=== PATIENT | female | born 1935 | race Caucasian/White ===

== ENCOUNTER → 2018-01-26 13:01 | Outpatient (CLI) | payer MEDICARE, SELFPAY ==
[2018-01-26] MEDS: ABATACEPT IV (13:35)
[2018-01-26] MEDS: SODIUM CHLORIDE 0.9% IV (13:35)
== END ==
PROVIDERS: Family Provider Internal Medicine; PCP Internal Medicine; Visit Provider Internal Medicine
DX: M06.9 Rheumatoid arthritis, unspecified (principal)
CPT/HCPCS: 96365; J0129

== ENCOUNTER → 2018-02-24 12:47 | Oncology outpatient (ONC) | payer MEDICARE, SELFPAY ==
[2018-02-24 13:34] VITALS: BP 125/63; PULSE 62; RESP 18; TEMP 36.7; O2SAT 97
[2018-02-24] MEDS: SODIUM CHLORIDE 0.9% IV (13:49)
[2018-02-24] MEDS: ABATACEPT IV (13:49)
--- NOTE | 2018-02-24 14:41 | PC.NURSE ---
Pt received Orencia in clinic today. Tolerated well, no s/s of distress noted. Denies chest pain and SOb. Denies N/v. Denies numbness and tingling to extremities x4. Reports good appetite. Supportive at chair side.
== END ==
LOC: ONC 12:50
PROVIDERS: Family Provider Internal Medicine; PCP Internal Medicine; Visit Provider Internal Medicine
DX: M06.9 Rheumatoid arthritis, unspecified (principal)
CPT/HCPCS: 96365; 96413; J0129

== ENCOUNTER → 2018-11-17 14:51 | Outpatient (CLI) | payer MEDICARE, SELFPAY ==
--- NOTE | 2018-11-17 | DI.ECHO.S_ITS ---
[facility]---------+ [facility] +---------+ : : [address] : [place] [address] : : : : [id number] : : : : Phone: [phone] : [phone]+ Echocardiogram Report + + :Name: ANUP PANG Study Date: 11/17/2018 Height: 63 in : :[facility] Weight: 162 lb : : Gender: Female BSA: 1.8 m2 : :: 1935 Age: 82 yrs BP: 150/70 mmHg: :Reason For Study: Aortic valve stenosis : : Performed By: Ivette Hernandez : :Referring: SHELLEY MCCLAIN : + + Interpretation Summary Normal sinus rhythm. Wide QRS complexes. Normal LV size and wall thickness; normal wall motion and LV systolic function. EF is 60-65%. Stage II diastolic dysfunction. Severe LA enlargement; normal chamber sizes otherwise. Aortic valve is a trileaflet structure with heavily thickened and calcified leaflets; there is moderate aortic stenosis based on peak velocity (3.7 m/sec) and mean gradient (28 mm Hg). There is moderate associated AI. Otherwise no significant valvular abnormalities. Compared to prior study 09/09/2017 peak velocity across the aortic valve progressed from 3.3 m/sec to 3.7 m/sec, corresponding to worsening aortic stenosis. Procedure: A two-dimensional transthoracic echocardiogram with color flow and Doppler was performed. The study quality was technically adequate. Comparison is made with the echocardiogram of 09-09-17. The heart rate ranged between 66-75 bpm during the study. Left Ventricle: The left ventricle is normal in size. Left ventricular wall thickness is at the upper limits of normal. The ejection fraction is estimated to be 60-65%. Right Ventricle: The right ventricle grossly appears normal in size with probable normal systolic function. Atria: The left atrium is severely dilated. Right atrial size is normal. The interatrial septum is intact with no evidence for an atrial septal defect. Mitral Valve: The mitral valve leaflets appear borderline thickened, but open well. There is mild mitral regurgitation. Aortic Valve: The calculated aortic valve area is 0.9 cm2. The aortic valve area is 1.1 centimeters squared by planimetry. The peak aortic velocity is 3.7 m/sec. The peak aortic velocity on the previous exam was 3.3 m/sec. The aortic valve mean gradient is 28 mmHg. Severity ratio is 0.26. There is moderate aortic regurgitation. Tricuspid Valve: The tricuspid valve leaflets are thin and pliable. There is trace tricuspid regurgitation. The right ventricular systolic pressure is estimated to be at least 35 mmHg based on an estimated right atrial pressure of 3 mm Hg. Pulmonic Valve: The pulmonic valve is not well visualized. Great Vessels: The aortic root is normal size. The IVC is of normal diameter and collapses greater than 50% with a sniff. This suggests a low right atrial pressure of 3 mm Hg. Pericardium/ Pleura There is no pericardial effusion. There is no pleural effusion. MMode/2D Measurements & Calculations LVIDd: 4.4 cm LVOT diam: 2.1 cm LVIDs: 3.0 cm Ao root diam: 3.3 cm FS: 32.8 % asc Aorta Diam: 3.4 cm EPSS: 0.40 cm Ao Arch Diam (Prox Trans): 2.9 cm IVSd: 1.0 cm LVPWd: 1.1 cm LV salinas. diameter/BSA (cm/m^2): 2.5 LV sys. diameter/BSA (cm/m^2): 1.7 LA dimension: 3.6 cm RA long axis: 4.9 cm LA A2 area: 26.3 cm2 RA area: 18.4 cm2 LA A4 area: 20.5 cm2 RA vol: 58.7 ml LA length (vol): 4.8 cm RA : 33.2 ml/m2 LA vol: 95.9 ml IVC diam: 1.6 cm LA vol index: 54.2 ml/m2 RVDd major: 5.3 cm RVD1 (basal): 3.8 cm RVD2 (mid): 3.0 cm EN (plan): 1.1 cm2 Doppler Measurements & Calculations Ao V2 max: 372.6 cm/sec LVOT Max Cecil: 98.8 cm/sec Ao V2 mean: 246.4 cm/sec LV V1 max P.9 mmHg Ao max P.5 mmHg LV V1 VTI: 23.3 cm Ao mean P.3 mmHg EN(I,D): 0.87 cm2 Ao V2 VTI: 88.8 cm EN(V,D): 0.88 cm2 sev ratio: 0.26 EN indexed to BSA (cm^2/m^2): 0.49 AI P1/2t: 299.0 msec AI dec slope: 444.7 cm/sec2 MV E max cecil: 87.3 cm/sec TR max cecil: 281.1 cm/sec MV A max cecil: 109.3 cm/sec TR max P.6 mmHg MV E/A: 0.80 PA V2 max: 75.0 cm/sec Med Peak E' Cecil: 6.2 cm/sec PA V2 mean: 50.9 cm/sec E/E' med: 14.1 PA mean P.2 mmHg Lat Peak E' Cecil: 4.4 cm/sec PA Accel Time: 0.17 sec E/E' lat: 19.8 E/e' average: 16.9 MV dec time: 0.21 sec MV P1/2t: 64.2 msec MV P1/2t max cecil: 86.8 cm/sec SV(LVOT): 77.3 ml MVA(P1/2t): 3.4 cm2 Electronically signed by: Yolanda Frye M.D. on Reading Physician:11/18/2018 07:17 AM
== END ==
PROVIDERS: PCP Internal Medicine; Visit Provider Internal Medicine
DX: I08.0 Rheumatic disorders of both mitral and aortic valves (principal)
CPT/HCPCS: 93306

== ENCOUNTER → 2020-01-22 09:08 | Outpatient (CLI) | payer MEDICARE, SELFPAY ==
--- NOTE | 2020-01-22 | DI.ECHO.S_ITS ---
[facility] +---------+ [facility] +---------+ : : [address] : [place] [address] : : : : [id number] : : : : Phone: [phone] : : [phone]+ Echocardiogram Report + + :Name: ANUP PANG Study Date: 01/22/2020 Height: 63 in : :[facility] Weight: 165 lb : : Gender: Female BSA: 1.8 m2 : :: 1935 Age: 84 yrs BP: 155/78 mmHg: :Reason For Study: AORTIC STENOSIS : :Ordering Physician: Rogelio Levy Performed By: Mary Kay Barclay : :Referring: ROGELIO LEVY : + + Interpretation Summary 1) Normal left ventricular size, wall motion, and systolic function (EF 60- 65%). 2) Normal right ventricular size and function 3) There is moderate to severe aortic stenosis (valve area 0.9cm2, mean gradient 36.6mmHg, severity ratio 0.33). 4) There is moderate aortic regurgitation. 5) Compared to the Echo done 11/17/2018, aortic stenosis has progressed from moderate to moderate-severe on this study. Procedure: A two-dimensional transthoracic echocardiogram with color flow and Doppler was performed. The study quality was technically adequate. Comparison is made with the echocardiogram of 11/17/2018. The patient was in normal sinus rhythm during the exam. Left Ventricle: The left ventricle is normal in size. Left ventricular wall thickness is at the upper limits of normal. The ejection fraction is estimated to be 60-65%. Left ventricular systolic function is normal. Left ventricular wall motion is normal. Right Ventricle: The right ventricle is normal in size and function. Atria: The left atrium is mildly dilated. Right atrial size is normal. There is no Doppler evidence for an interatrial shunt. Mitral Valve: There is mild to moderate mitral annular calcification. The mitral valve leaflets appear mildly thickened, but open well. There is mild mitral regurgitation. Aortic Valve: The aortic valve is moderately calcified. The aortic valve is trileaflet. There is moderate to severe aortic stenosis. There is moderate aortic regurgitation. Tricuspid Valve: The tricuspid valve is normal in structure and function. There is mild tricuspid regurgitation. The right ventricular systolic pressure is estimated to be at least 22 mmHg based on an estimated right atrial pressure of 3 mm Hg. Pulmonic Valve: The pulmonic valve is not well seen, but is grossly normal. There is no pulmonic valvular regurgitation. Great Vessels: The aortic root is normal size. The ascending aorta is at the upper limits of normal in size. The IVC is of normal diameter and collapses greater than 50% with a sniff. This suggests a low right atrial pressure of 3 mm Hg. Pericardium/ Pleura There is no pericardial effusion. There is no pleural effusion. MMode/2D Measurements & Calculations LVIDd: 4.8 cm LVOT diam: 2.0 cm LVIDs: 3.3 cm Ao root diam: 3.1 cm FS: 30.3 % asc Aorta Diam: 3.3 cm EPSS: 0.42 cm Ao Arch Diam (Prox Trans): 2.8 cm IVSd: 0.87 cm LVPWd: 1.1 cm LV sal[place]. diameter/BSA (cm/m^2): 2.7 LV sys. diameter/BSA (cm/m^2): 1.9 LA A2 area: 22.0 cm2 RA long axis: 4.9 cm LA A4 area: 18.1 cm2 RA area: 16.6 cm2 LA length (vol): 5.4 cm RA vol: 48.1 ml LA vol: 62.7 ml RA : 27.0 ml/m2 LA vol index: 35.2 ml/m2 IVC diam: 1.7 cm RVD1 (basal): 3.7 cm TAPSE: 2.0 cm Doppler Measurements & Calculations Ao V2 max: 410.2 cm/sec LVOT Max Cecil: 123.3 cm/sec Ao V2 mean: 288.6 cm/sec LV V1 max P.1 mmHg Ao max P.8 mmHg LV V1 VTI: 32.5 cm Ao mean P.6 mmHg EN(I,D): 0.99 cm2 Ao V2 VTI: 98.9 cm EN(V,D): 0.91 cm2 sev ratio: 0.33 EN indexed to BSA (cm^2/m^2): 0.56 AI P1/2t: 458.7 msec AI dec slope: 312.7 cm/sec2 MV E max cecil: 94.3 cm/sec TR max cecil: 220.1 cm/sec MV A max cecil: 79.0 cm/sec TR max P.4 mmHg MV E/A: 1.2 PA V2 max: 79.3 cm/sec Med Peak E' Cecil: 7.7 cm/sec PA V2 mean: 57.3 cm/sec E/E' med: 12.2 PA mean P.4 mmHg Lat Peak E' Cecil: 7.5 cm/sec PA pr(Accel): 20.8 mmHg E/E' lat: 12.5 E/e' average: 12.4 MV dec time: 0.31 sec SV(LVOT): 98.2 ml Reading Physician:02:12 PM
== END ==
PROVIDERS: PCP Internal Medicine; Referring Provider Internal Medicine; Visit Provider Internal Medicine
DX: I08.3 Combined rheumatic disorders of mitral, aortic and tricuspid valves (principal)
CPT/HCPCS: 93306

== ENCOUNTER → 2020-03-12 10:36 | Outpatient (CLI) | payer MEDICARE, SELFPAY ==
[2020-03-12 11:38] LABS: Add Manual Diff / Slide Review NO; Basophils Absolute Auto 100 /uL (0-100); Basophils Percent Auto 1.3 % (0-2); Eosinophils Absolute Auto 300 /uL (0-450); Eosinophils Percent Auto 4.7 % (2-4); Hematocrit 32.4 % (36-46); Hemoglobin 10.9 g/dL (12.0-16.0); Lymphocytes Absolute Auto 1300 /uL (1100-4500); Lymphocytes Percent Auto 19.5 % (25-40); Mean Corpuscular HGB Conc 33.6 % (30-36); Mean Corpuscular Hemoglobin 33.1 PG (26-34); Mean Corpuscular Volume 98.6 fL (80-100); Monocytes Absolute Auto 800 /uL (0-900); Monocytes Percent Auto 12.6 % (3-14); Neutrophils Absolute Auto 4100 /uL (1500-7000); Neutrophils Percent Auto 61.9 % (50-75); Platelet Count 187 X10^3/uL (150-400); Red Blood Cell Count 3.29 X10^6/uL (4.0-5.2); Red Cell Distribution Width 13.8 % (11.6-14.8); White Blood Cell Count 6.6 X10^3/uL (4.5-11.0)
[2020-03-12 12:16] LABS: Alanine Aminotransferase 17 IU/L (<35); Albumin 4.1 g/dL (3.5-5.0); Albumin Globulin Ratio 1.5 (1.0-2.8); Alkaline Phosphatase 67 U/L (38-126); Aspartate Aminotransferase 30 IU/L (14-36); BUN Creatinine Ratio 25.6 (6-22); Bilirubin Total 0.6 mg/dL (0.2-1.3); Blood Urea Nitrogen 20 mg/dL (7-17); Calcium 9.6 mg/dL (8.4-10.2); Carbon Dioxide 29 mmol/L (22-32); Chloride 98 mmol/L (98-107); Cholesterol 233 mg/dL (140-199); Estimated Glomerular Filt Rate > 60.0 mL/min (>60); Globulin 2.8 g/dL (1.7-4.1); Glucose 101 mg/dL (80-110); HDL Cholesterol 48 mg/dL (40-60); HEMOLYSIS < 15 (0-50); LDL Cholesterol Calculated 166 mg/dL (<100); Magnesium 1.8 mg/dL (1.6-2.3); Potassium 3.9 mmol/L (3.4-5.1); Sodium 133 mmol/L (137-145); Total Protein 6.9 g/dL (6.3-8.2); Triglycerides 94 mg/dL (35-150)
[2020-03-12 12:43] LABS: Thyroid Stimulating Hormone 4.39 uIU/mL (0.47-4.68)
== END ==
PROVIDERS: PCP Internal Medicine; Referring Provider Nurse Practitioner; Visit Provider Nurse Practitioner
DX: I10 Essential (primary) hypertension (principal); E78.5 Hyperlipidemia, unspecified; I35.0 Nonrheumatic aortic (valve) stenosis; I45.10 Unspecified right bundle-branch block; R06.09 Other forms of dyspnea; R55 Syncope and collapse
CPT/HCPCS: 36415; 80053; 80061; 83735; 84443; 85025

== ENCOUNTER → 2020-07-28 14:05 | Outpatient (CLI) | payer MEDICARE, SELFPAY ==
--- NOTE | 2020-08-27 10:46 | P.HOLT.S_ITS ---
Order Administrator Report Referral & Results Date Patient Seen: 07/28/20 Requesting provider: Kelsie Arnett Indication: Cardiac arrhythmia Duration of monitoring (days): 14 Diary information: There were no patient diary entries or patient triggered events to evaluate Data: Minimum heart rate identified was 54 beats per minute at 11:11 on 08/09/2020 Maximum sinus heart rate was 133 beats per minute at 08:50 on 08/05/2020 Maximum overall heart rate was 250 beats per minute during a 5 beat run of ventricular tachycardia Approximately 1.8% of identified beats were supraventricular ectopic in origin Approximately 1.3% of identified beats were ventricular ectopic in origin including a 7.2nd run of ventricular trigeminy and a 7.2nd run of ventricular bigeminy There were 3 runs of nonsustained monomorphic ventricular tachycardia the fastest being the above-mentioned run at 250 beats per minute, the longest lasting 10 beats at a rate of 123 beats per minute. 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 Patient has occasional PVCs and PACs. There were runs of nonsustained ventricular tachycardia and more commonly runs of atrial tachycardia/SVT
== END ==
PROVIDERS: PCP Internal Medicine; Referring Provider Physician Assistant; Visit Provider Physician Assistant
DX: I49.9 Cardiac arrhythmia, unspecified (principal)
CPT/HCPCS: 0296T; 0298T

== ENCOUNTER → 2020-09-01 13:29 | Outpatient (CLI) | payer MEDICARE, SELFPAY ==
[2020-09-01 15:34] LABS: COVID19 -Nasal RAPID Negative (Negative)
== END ==
PROVIDERS: PCP Internal Medicine; Visit Provider Physician Assistant
DX: Z01.812 Encounter for preprocedural laboratory examination (principal); Z20.828 Contact with and (suspected) exposure to other viral communicable diseases
CPT/HCPCS: 87635; C9803

== ENCOUNTER 2020-10-09 10:30 | Outpatient (RCR) | payer MEDICARE, SELFPAY | END 2020-10-09 11:30 | LOC: CAR 10:30 | PROVIDERS: PCP Internal Medicine; Referring Provider Internal Medicine Cardiovascular Disease; Visit Provider Internal Medicine Cardiovascular Disease | DX: Z95.2 Presence of prosthetic heart valve (principal) | CPT/HCPCS: 93798 ==

== ENCOUNTER 2020-11-09 14:04 | Emergency (ER) | payer MEDICARE, SELFPAY ==
[2020-11-09 14:10] VITALS: BP 195/84; PULSE 70; RESP 20; TEMP 36.4; O2SAT 98
--- NOTE | 2020-11-09 14:22 | DI.CT.S_ITS ---
PROCEDURE: CT CERVICAL SPINE WO CON INDICATIONS: Fall/injury TECHNIQUE: Noncontrast 3 mm thick sections acquired from the skull base to the T4 level. Sagittal and coronal reformats were then constructed. For radiation dose reduction, the following was used: automated exposure control, adjustment of mA and/or kV according to patient size. COMPARISON: None. FINDINGS: Image quality: Excellent. Bones: No fractures or dislocations. Visualized superior ribs are intact. Degenerative changes are seen, with moderate to severe disc space narrowing at C5-C6 and C6-C7. Milder degenerative changes are seen elsewhere. Mild grade 1 anterolisthesis is seen at C7-T1. Degenerative change of the temporomandibular joints is partially seen. Soft tissues: Prevertebral soft tissues are normal in thickness. No paravertebral hematomas. No apical pneumothoraces. IMPRESSION: Negative for acute fracture. Cervical spine degenerative changes are seen, which are worst inferiorly. Dictated by: Haris Villa M.D. on 11/09/2020 at 14:15 Approved by: Haris Villa M.D. on 11/09/2020 at 14:16
--- NOTE | 2020-11-09 14:22 | DI.CT.S_ITS ---
PROCEDURE: CT HEAD/BRAIN WO CON INDICATIONS: Fall/injury TECHNIQUE: Noncontrast 4.5 mm thick angled axial sections acquired from the foramen magnum to the vertex, with coronal and sagittal reformats. For radiation dose reduction, the following was used: automated exposure control, adjustment of mA and/or kV according to patient size. COMPARISON: [facility], CT, CT CERVICAL SPINE WO CON, 11/09/2020, 14:50. (A prior head CT from 2006 is not available for review from the archive at the time of this dictation.) FINDINGS: Image quality: Excellent. CSF spaces: Basal cisterns are patent. There is incidental note made of an arachnoid cyst involving the anterior aspect of the left middle cranial fossa. The ventricles are symmetric in size and shape. Brain: No intracranial bleeds or masses. There is cerebral volume loss for age, with resultant ventricular and sulcal prominence. There are periventricular and deep white matter chronic small vessel ischemic changes. There is intracranial internal carotid artery atherosclerosis. Skull and face: Calvarium and visualized facial bones appear intact, without suspicious lesions. Sinuses: Visualized sinuses and mastoids are clear. IMPRESSION: No acute intracranial hemorrhage is seen. No acute intracranial process is seen. Note is made of age-appropriate brain parenchymal volume loss and chronic small vessel ischemic changes. Left middle cranial fossa arachnoid cyst incidentally noted. Dictated by: Haris Villa M.D. on 11/09/2020 at 14:12 Approved by: Haris Villa M.D. on 11/09/2020 at 14:14
--- NOTE | 2020-11-09 14:22 | DI.CT.S_ITS ---
PROCEDURE: CT PEL WO CON INDICATIONS: Fall/injury TECHNIQUE: Noncontrast 3 mm axial sections acquired through the bony pelvis, with coronal and sagittal reformatting. COMPARISON: [facility], CT, CT CERVICAL SPINE WO CON, 11/09/2020, 14:50. [facility], CT, CT HEAD/BRAIN WO CON, 11/09/2020, 14:50. (A prior abdomen and pelvis CT from 2007 is not available for review from the archive at the time of this dictation.) FINDINGS: Image quality: Excellent. Bones: No acute fracture can be seen. No dislocation. Degenerative changes are seen throughout, which are worst involving the lower lumbar spine. Grade 1 L5-S1 anterolisthesis can be seen, yet without associated pars defects. No suspicious lytic or blastic lesions are seen. Soft tissues: No dilated loops of small bowel can be seen. Colonic diverticulosis is seen, without findings of active diverticulitis. This patient is status post hysterectomy. No adnexal masses are seen. No large groin hernias can be seen. No enlarged lymph nodes are seen. IMPRESSION: No displaced fracture can be seen. Degenerative changes, which are worst within the lower lumbar spine. Incidental note is made of: Diverticulosis Hysterectomy Dictated by: Haris Villa M.D. on 11/09/2020 at 14:35 Approved by: Haris Villa M.D. on 11/09/2020 at 14:38
--- NOTE | 2020-11-09 14:31 | ED.FALL ---
HPI - Fall General Chief Complaint: Fall Stated Complaint: R Hip Pain Time Seen by Provider: 11/09/20 14:05 Source: patient and EMS Mode of arrival: EMS History of Present Illness HPI Narrative: Patient brought in by EMS from home. Patient was handing plastic bags to her on wooden steps and lost her balance and fell down 2 steps onto main floor. No loss of consciousness, she did hit her head. Is on aspirin. Patient denies any head pain or neck pain. Only complains of right hip pain. Denies any back pain chest pain or abdominal pain or upper extremity pain. No previous history of hip fracture or pelvic fracture. Related Data Home Medications Medication Instructions Recorded Confirmed FOLIC ACID (Folic Acid) 1 mg PO Q DAY #0 05/13/11 rosuvastatin [Crestor] 5 mg PO QDAY #0 05/13/11 leflunomide [Arava] 20 mg PO Q DAY #0 08/25/11 Allergies Allergy/AdvReac Type Severity Reaction Status Date / Time NSAIDS (Non-Steroidal AdvReac Unknown Verified 11/09/20 14:44 Anti-Inflamma Review of Systems Review of Systems Narrative: GENERAL: Denies chills, fatigue, malaise, fever, sweats. HEENT: Denies sinus pain, ear pain, sore throat RESPIRATORY: Denies dyspnea, cough CARDIOVASCULAR: Denies chest pain, palpitations GASTROINTESTINAL: Denies nausea, vomiting, abdominal pain : Denies dysuria, frequency, hematuria MUSCULOSKELETAL: Complains muscle or bony pain SKIN: Denies rash, skin lesions NEUROLOGIC: Denies weakness, numbness ROS Unobtainable: All systems reviewed & are unremarkable except as noted in HPI and below Exam Narrative Exam Narrative: GENERAL: in no distress, not toxic not dyspneic HEAD: Normocephalic. Nontender scalp and skull no crepitus or step-off. No edema. EYES: Pupils equal round No scleral icterus. No injection no discharge ENT: Mucous membranes moist. NECK: Trachea midline. No midline tenderness or step-off. Full active range of motion without pain. CARDIOVASCULAR: Regular rate and rhythm without murmurs RESPIRATORY: Clear to auscultation. Breath sounds equal bilaterally. No wheezes, rales, or rhonchi. GASTROINTESTINAL: Abdomen soft, non-tender EXTREMITIES: No gross deformities. Pants removed. Mild tenderness to the right hip. Right leg is not shortened or externally or internally rotated. Light touch intact to foot and toes. Nontender knee and ankle. Skin intact. BACK: No flank tenderness. NEURO: AOx4. SKIN: Warm and dry PSYCH: Not anxious, is cooperative Initial Vital Signs Initial Vital Signs: Vital Signs Temperature 97.6 F 11/09/20 14:10 Pulse Rate 70 11/09/20 14:10 Respiratory Rate 20 11/09/20 14:10 Blood Pressure 195/84 H 11/09/20 14:10 Pulse Oximetry 98 11/09/20 14:10 Course Course Course Narrative: Pain controlled blood pressure improved no new issues during course of stay Orders Ordered: ED Orders 11/09/20 14:22 CT cervical spine wo con Stat CT head/brain wo con Stat CT pelvis wo con Stat Discontinued Medications Hydrocodone Bitart/Acetaminophen (Hydrocodone/Acet 5/325 Tablet) 1 tab PO NOW ONE Stop: 11/09/20 14:22 Last Admin: 11/09/20 14:43 Dose: 1 tab Documented by: ANIL Ondansetron HCl (Ondansetron 4 Mg Odt) 4 mg SL NOW ONE Stop: 11/09/20 14:22 Last Admin: 11/09/20 14:43 Dose: 4 mg Documented by: ANIL Reevaluation(s) Reevaluation #1: No new complaints. Reviewed results with patient and at bedside. They desire discharge home Time: 15:53 Vital Signs Vital signs: Vital Signs - 8 hr 11/09/20 14:10 11/09/20 15:51 11/09/20 16:12 Temperature 97.6 F Pulse Rate 70 61 Respiratory Rate 20 18 Blood Pressure 195/84 H 195/84 H 171/78 H Pulse Oximetry 98 95 MDM - Fall Differential Diagnosis Differential diagnosis: Likely other (Hip fracture/hip contusion/scalp contusion) Imaging Data CT scan - head: Radiologist's Impression: [address] [id number] Scan ReportSigned Patient: Екатерина Garsia [employer] [facility] [employer]#: [id number]: 8Acct:[id number]/Sex: 84 / FDate of Service: 11/09/20Loc: EDAccession Number: [id number] Procedure: CT head/brain wo con Ordering Provider: Samuel Layton MD PROCEDURE: CT HEAD/BRAIN WO CON INDICATIONS: Fall/injury TECHNIQUE: Noncontrast 4.5 mm thick angled axial sections acquired from the foramen magnum to the vertex, with coronal and sagittal reformats. For radiation dose reduction, the following was used: automated exposure control, adjustment of mA and/or kV according to patient size. COMPARISON: [facility], CT, CT CERVICAL SPINE WO CON, 11/09/2020, 14:50. (A prior head CT from 2006 is not available for review from the archive at the time of this dictation.) FINDINGS: Image quality: Excellent. CSF spaces: Basal cisterns are patent. There is incidental note made of an arachnoid cyst involving the anterior aspect of the left middle cranial fossa. The ventricles are symmetric in size and shape. Brain: No intracranial bleeds or masses. There is cerebral volume loss for age, with resultant ventricular and sulcal prominence. There are periventricular and deep white matter chronic small vessel ischemic changes. There is intracranial internal carotid artery atherosclerosis. Skull and face: Calvarium and visualized facial bones appear intact, without suspicious lesions. Sinuses: Visualized sinuses and mastoids are clear. IMPRESSION: No acute intracranial hemorrhage is seen. No acute intracranial process is seen. Note is made of age-appropriate brain parenchymal volume loss and chronic small vessel ischemic changes. Left middle cranial fossa arachnoid cyst incidentally noted. Dictated by: Haris Villa M.D. on 11/09/2020 at 14:12 Approved by: Haris Villa M.D. on 11/09/2020 at 14:14 CT - cervical spine: Radiologist's Impression: [address] [id number] Scan ReportSigned Patient: Екатерина Garsia [facility]#: [id number]: 8Acct:[id number]/Sex: 84 / FDate of Service: 11/09/20Loc: EDAccession Number: [id number] Procedure: CT cervical spine wo con Ordering Provider: Samuel Layton MD PROCEDURE: CT CERVICAL SPINE WO CON INDICATIONS: Fall/injury TECHNIQUE: Noncontrast 3 mm thick sections acquired from the skull base to the T4 level. Sagittal and coronal reformats were then constructed. For radiation dose reduction, the following was used: automated exposure control, adjustment of mA and/or kV according to patient size. COMPARISON: None. FINDINGS: Image quality: Excellent. Bones: No fractures or dislocations. Visualized superior ribs are intact. Degenerative changes are seen, with moderate to severe disc space narrowing at C5-C6 and C6-C7. Milder degenerative changes are seen elsewhere. Mild grade 1 anterolisthesis is seen at C7-T1. Degenerative change of the temporomandibular joints is partially seen. Soft tissues: Prevertebral soft tissues are normal in thickness. No paravertebral hematomas. No apical pneumothoraces. IMPRESSION: Negative for acute fracture. Cervical spine degenerative changes are seen, which are worst inferiorly. Dictated by: Haris Villa M.D. on 11/09/2020 at 14:15 Approved by: Haris Villa M.D. on 11/09/2020 at 14:16 CT pelvis: Radiologist's Impression: [address] [id number] Scan ReportSigned Patient: Екатерина Garsia [facility]#: [id number]: 8Acct:[id number]/Sex: 84 / FDate of Service: 11/09/20Loc: EDAccession Number: [id number] Procedure: CT pelvis wo con Ordering Provider: Samuel Layton MD PROCEDURE: CT PEL WO CON INDICATIONS: Fall/injury TECHNIQUE: Noncontrast 3 mm axial sections acquired through the bony pelvis, with coronal and sagittal reformatting. COMPARISON: [facility], CT, CT CERVICAL SPINE WO CON, 11/09/2020, 14:50. [facility], CT, CT HEAD/BRAIN WO CON, 11/09/2020, 14:50. (A prior abdomen and pelvis CT from 2007 is not available for review from the archive at the time of this dictation.) FINDINGS: Image quality: Excellent. Bones: No acute fracture can be seen. No dislocation. Degenerative changes are seen throughout, which are worst involving the lower lumbar spine. Grade 1 L5-S1 anterolisthesis can be seen, yet without associated pars defects. No suspicious lytic or blastic lesions are seen. Soft tissues: No dilated loops of small bowel can be seen. Colonic diverticulosis is seen, without findings of active diverticulitis. This patient is status post hysterectomy. No adnexal masses are seen. No large groin hernias can be seen. No enlarged lymph nodes are seen. IMPRESSION: No displaced fracture can be seen. Degenerative changes, which are worst within the lower lumbar spine. Incidental note is made of: Diverticulosis Hysterectomy Dictated by: Haris Villa M.D. on 11/09/2020 at 14:35 Approved by: Haris Villa M.D. on 11/09/2020 at 14:38 MDM Narrative Medical decision making narrative: Appropriate for discharge home. Reviewed results with patient. Pain is controlled. Blood pressure elevation on arrival likely due to pain. Discharge Plan Departure Patient Disposition: Home Clinical Impression: Contusion of hip, right Qualifiers: Encounter type: initial encounter Qualified Code(s): S70.01XA - Contusion of right hip, initial encounter Activity Restrictions/Additional Instructions: No driving or operating machinery tonight. See family doctor this week for recheck. Return if worsening questions or concerns. May continue Tylenol for pain. Prescriptions: No Action FOLIC ACID (Folic Acid) 1 mg PO Q DAY Qty: 0 RF: 0 rosuvastatin [Crestor] 5 MG tablet 5 mg PO QDAY Qty: 0 RF: 0 leflunomide [Arava] 20 MG tablet 20 mg PO Q DAY Qty: 0 RF: 0 Referrals: Rogelio Levy MD [Primary Care Provider] -
[2020-11-09] MEDS: HYDROCODONE/ACET 5/325 TABLET 1 TAB PO (14:43)
[2020-11-09] MEDS: ONDANSETRON 4 MG ODT SL (14:43)
[2020-11-09 15:51] VITALS: BP 195/84; PULSE 61; RESP 18; O2SAT 95
[2020-11-09 16:12] VITALS: BP 171/78
== END 2020-11-09 16:13 | disposition home or self-care (01) ==
PROVIDERS: Emergency Provider Emergency Medicine; PCP Internal Medicine
DX: S70.01XA Contusion of right hip, initial encounter (principal); S09.90XA Unspecified injury of head, initial encounter; W19.XXXA Unspecified fall, initial encounter
CPT/HCPCS: 70450; 72125; 72192; 99283; 99284

== ENCOUNTER 2020-11-18 09:02 | Emergency (ER) | payer MEDICARE, SELFPAY ==
[2020-11-18] VITALS (8 sets, daily range): BP systolic 176–207; BP diastolic 82–110; PULSE 68–74; RESP 16; TEMP 37.1; O2SAT 96–99; BMI 27.8
--- NOTE | 2020-11-18 09:16 | ED_ITS ---
HPI - Fall General Chief Complaint: Fall Stated Complaint: Fall Time Seen by Provider: 11/18/20 09:08 Source: patient and EMS Mode of arrival: EMS History of Present Illness HPI Narrative: Patient brought in here by ambulance from home. Patient states she fell last night 7:00 p.m. at home. Patient states she lost her balance leaning over to picker packer her house slippers. Denies any loss of consciousness. Patient seen by me about 10 days ago, November 09 for a fall losing her balance at the stairway when was handing her plastic bags. Continues to have right hip pain from that fall. There is medial right thigh bruising from that fall. CT scan of head cervical spine and pelvis was done on that visit. No acute fractures. Patient took Tylenol as instructed from last visit and had nausea from that. Continues have nausea this morning. Patient does take 1 aspirin a day and is able to tolerate that despite allergies to NSAIDs. History of heart valve replacement. Is not on any other blood thinner. Denies any pre event chest pain abdominal pain dizziness headache. Complains of back of the head pain from the fall. Denies any neck pain or back pain. No altered mental status or confusion. Patient has been ambulatory since the 1st fall. complaint: fall Related Data Home Medications Medication Instructions Recorded Confirmed FOLIC ACID (Folic Acid) 1 mg PO Q DAY #0 05/13/11 rosuvastatin [Crestor] 5 mg PO QDAY #0 05/13/11 leflunomide [Arava] 20 mg PO Q DAY #0 08/25/11 Previous Rx's Medication Instructions Recorded ondansetron 4 mg PO Q8H PRN #10 tab 11/18/20 Allergies Allergy/AdvReac Type Severity Reaction Status Date / Time NSAIDS (Non-Steroidal AdvReac Unknown Verified 11/09/20 14:44 Anti-Inflamma Review of Systems Review of Systems Narrative: GENERAL: Denies chills, fatigue, malaise, fever, sweats. HEENT: Denies sinus pain, ear pain, sore throat RESPIRATORY: Denies dyspnea, cough CARDIOVASCULAR: Denies chest pain, palpitations GASTROINTESTINAL: Complains nausea, vomiting, denies abdominal pain : Denies dysuria, frequency, hematuria MUSCULOSKELETAL: Complains of muscle or bony pain SKIN: Denies rash, skin lesions NEUROLOGIC: Denies weakness, numbness ROS Unobtainable: All systems reviewed & are unremarkable except as noted in HPI and below Exam Narrative Exam Narrative: GENERAL: in no distress, not toxic not dyspneic pants shoes and socks removed HEAD: Normocephalic. Mild tenderness to the occiput/scalp. No crepitus or step-off. Scalp/skin intact. No laceration. No edema. No crepitus or step- off. EYES: Pupils equal round No scleral icterus. No injection no discharge ENT: Mucous membranes moist. NECK: Trachea midline. No midline cervical tenderness or step-off. CARDIOVASCULAR: Regular rate and rhythm without murmurs RESPIRATORY: Clear to auscultation. Breath sounds equal bilaterally. No wheezes, rales, or rhonchi. GASTROINTESTINAL: Abdomen soft, non-tender EXTREMITIES: No gross deformities. Examination right upper extremity, right shoulder no gross deformity drop-off. Strong mathematics department chair in light touch intact to deltoid and fingertips. Strong mathematics department chair. Able to bring right hand above her head. Mild diffuse tenderness of the right shoulder. Examination of the pelvis and hips. Able to actively flex and extend each hip to 90? and fully extend. No shortening or rotation of the legs or feet. Light touch intact to feet and toes with strong pedal pulses, feet warm soft and pink. There is scattered right inner thigh ecchymoses, patient states that occurred after 1st fall BACK: No flank tenderness. NEURO: AOx4. Clear speech no facial droop light touch intact to bilateral face hands and feet. Strong equal sleep lab technologist. SKIN: Warm and dry PSYCH: Not anxious, is cooperative Initial Vital Signs Initial Vital Signs: Vital Signs Pulse Rate 74 11/18/20 09:07 Blood Pressure 207/89 H 11/18/20 09:07 Pulse Oximetry 97 11/18/20 09:07 Course Course Course Narrative: No new issues during course of stay. Orders Ordered: Discontinued Medications Sodium Chloride (Normal Saline 0.9%) 1,000 mls @ 1,000 mls/hr IV BOLUS ONE Stop: 11/18/20 10:14 Last Admin: 11/18/20 10:17 Dose: 1,000 mls/hr Documented by: VIVIANE Ondansetron HCl (Ondansetron 4 Mg/2 Ml Inj) 4 mg IV NOW ONE Stop: 11/18/20 09:16 Last Admin: 11/18/20 10:17 Dose: 4 mg Documented by: VIVIANE Reevaluation(s) Reevaluation #1: now bedside. Reviewed results with patient and . They agree with discharge plan. And follow-up. Pain controlled. Nausea controlled. Time: 10:25 Vital Signs Vital signs: Vital Signs - 8 hr 11/18/20 09:08 Temperature 98.7 F Pulse Rate 69 Respiratory Rate 16 Blood Pressure 207/89 H Pulse Oximetry 96 MDM - Fall Differential Diagnosis Differential diagnosis: Likely other (Scalp contusion neck strain pelvis contusion right shoulder strain) Medical Records Attestation: I reviewed the patient's medical records. Imaging Data CT scan - head: Radiologist's Impression: [address] [id number] Scan ReportSigned Patient: Екатерина Garsia AMR#: [id number]: 8Acct:[id number]/Sex: 84 / FDate of Service: 11/18/20Loc: EDAccession Number: [id number] Procedure: CT head/brain wo con Ordering Provider: Samuel Layton MD PROCEDURE: CT HEAD/BRAIN WO CON INDICATIONS: fall/pain TECHNIQUE: Noncontrast 4.5 mm thick angled axial sections acquired from the foramen magnum to the vertex, with coronal and sagittal reformats. For radiation dose reduction, the following was used: automated exposure control, adjustment of mA and/or kV according to patient size. COMPARISON: [facility], CT, CT HEAD/BRAIN WO CON, 11/09/2020, 14:50. FINDINGS: Image quality: Excellent. CSF spaces: Basal cisterns are patent. No extra-axial fluid collections. The ventricles are symmetric in size and shape. Brain: No intracranial bleeds or masses. There is cerebral volume loss for age, with resultant ventricular and sulcal prominence. There are periventricular and deep white matter chronic small vessel ischemic changes. There is intracranial internal carotid artery atherosclerosis. Skull and face: Calvarium and visualized facial bones appear intact, without suspicious lesions. Sinuses: Visualized sinuses and mastoids are clear. IMPRESSION: 1. No acute intracranial abnormalities. 2. Cerebral volume loss and chronic microvascular ischemic changes. Dictated by: Deven Albert M.D. on 11/18/2020 at 9:41 Approved by: Deven Albert M.D. on 11/18/2020 at 9:42 CT - cervical spine: Radiologist's Impression: [address] [id number] Scan ReportSigned Patient: Екатерина Garsia AMR#: [id number]: 8Acct:[id number]/Sex: 84 / FDate of Service: 11/18/20Loc: EDAccession Number: [id number] Procedure: CT cervical spine wo con Ordering Provider: Samuel Layton MD PROCEDURE: CT CERVICAL SPINE WO CON INDICATIONS: fall/pain TECHNIQUE: Noncontrast 3 mm thick sections acquired from the skull base to the T4 level. Sagittal and coronal reformats were then constructed. For radiation dose reduction, the following was used: automated exposure control, adjustment of mA and/or kV according to patient size. COMPARISON: [facility], CT, CT CERVICAL SPINE WO CON, 11/09/2020, 14:50. FINDINGS: Image quality: Excellent. Bones: No fractures or dislocations. Degenerative disc disease, severe at C5- C6 and C6-C7, moderate at C7-T1, mild at C3-C4 and C4-C5. There is jqdmzdgr-[id number] bilateral facet arthropathy scattered in cervical spine, most pronounced at C 2-C3 and C7- T1 on the right, and C3-C4 on the left. There is trace anterolisthesis at C7-T1. Visualized superior ribs are intact. Soft tissues: Prevertebral soft tissues are normal in thickness. No paravertebral hematomas. No apical pneumothoraces. Right apical scars. IMPRESSION: No cervical spine fracture. Degenerative changes as described. Dictated by: Deven Albert M.D. on 11/18/2020 at 9:42 Approved by: Deven Albert M.D. on 11/18/2020 at 9:46 Extremity x-ray #1: Radiologist's Impression: [address] [id number] ReportSigned Patient: Екатерина Garsia AMR#: [id number]: 8Acct:[id number]/Sex: 84 / FDate of Service: 11/18/20Loc: EDAccession Number: [id number] Procedure: XR shoulder RT min 2V Ordering Provider: Samuel Layton MD PROCEDURE: XR SHOULDER RT MIN 2V INDICATIONS: fall/pain TECHNIQUE: 3 views of the shoulder were acquired. COMPARISON: None. FINDINGS: Bones: No fractures or dislocations. 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 No suspicious bony lesions. Visualized ribs appear intact. Soft tissues: No suspicious soft tissue calcifications. 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 Dictated by: Ad Roman M.D. on 11/18/2020 at 9:53 Approved by: Ad Roman M.D. on 11/18/2020 at 9:55 CT scan pelvis without contrast: Radiologist's Impression: [address] [id number] Scan ReportSigned Patient: Екатерина Garsia AMR#: [id number]: 8Acct:[id number]/Sex: 84 / FDate of Service: 11/18/20Loc: EDAccession Number: [id number] Procedure: CT pelvis wo con Ordering Provider: Samuel Layton MD PROCEDURE: CT PEL WO CON INDICATIONS: fall/pain TECHNIQUE: Noncontrast 3 mm axial sections acquired through the bony pelvis, with coronal and sagittal reformatting. COMPARISON: [facility], CT, CT PEL WO CON, 11/09/2020, 14:50. FINDINGS: Image quality: Excellent. Bones: No fracture or dislocation. Moderate degenerative disc disease in hips bilaterally. There is grade 1 anterolisthesis of L5 on S1. Moderate degenerative disc disease and severe facet arthropathy at L5-S1. Mild degenerative disease at L4- L5 Soft tissues: There is enlargement, edema and stranding of the right iliopsoas muscle. No soft tissue hematoma or mass. Diverticulosis without diverticulitis in sigmoid colon. Uterus is absent. Nqkp-ya-nxjisjyi atherosclerosis. IMPRESSION: 1. No fracture or dislocation. 2. Enlargement, edema and stranding of the right iliopsoas muscle consistent with muscle strain and intramuscular hematoma. 3. Degenerative disc and facet disease in lumbar spine. Dictated by: Deven Albert M.D. on 11/18/2020 at 9:46 Approved by: Deven Albert M.D. on 11/18/2020 at 9:56 MDM Narrative Medical decision making narrative: Appropriate for discharge home. No laboratory studies indicated. Mechanical fall. Nausea and vomiting from take Tylenol which patient states is not unusual. No EKG indicated. Muscle strain likely from last visit has ecchymosis is old and not likely from last night fal l. Patient states bruising was there before her fall yesterday Discharge Plan Departure Patient Disposition: Home Clinical Impression: Pelvic contusion Qualifiers: Encounter type: initial encounter Qualified Code(s): S30.0XXA - Contusion of lower back and pelvis, initial encounter Contusion of scalp Qualifiers: Encounter type: initial encounter Qualified Code(s): S00.03XA - Contusion of scalp, initial encounter Activity Restrictions/Additional Instructions: Return if worse if any questions concerns. Continue Tylenol for pain. See family doctor this week for recheck. Keep well hydrated. Return if worse. Prescription for Zofran has been sent to your [facility] in [place] Prescriptions: New ondansetron 4 mg tablet,disintegrating 4 mg PO Q8H PRN (Reason: nausea and vomiting) Qty: 10 RF: 0 No Action FOLIC ACID (Folic Acid) 1 mg PO Q DAY Qty: 0 RF: 0 rosuvastatin [Crestor] 5 MG tablet 5 mg PO QDAY Qty: 0 RF: 0 leflunomide [Arava] 20 MG tablet 20 mg PO Q DAY Qty: 0 RF: 0 Referrals: Rogelio Levy MD [Primary Care Provider] -
--- NOTE | 2020-11-18 09:41 | DI.CT.S_ITS ---
PROCEDURE: CT CERVICAL SPINE WO CON INDICATIONS: fall/pain TECHNIQUE: Noncontrast 3 mm thick sections acquired from the skull base to the T4 level. Sagittal and coronal reformats were then constructed. For radiation dose reduction, the following was used: automated exposure control, adjustment of mA and/or kV according to patient size. COMPARISON: [facility], CT, CT CERVICAL SPINE WO CON, 11/09/2020, 14:50. FINDINGS: Image quality: Excellent. Bones: No fractures or dislocations. Degenerative disc disease, severe at C5-C6 and C6-C7, moderate at C7-T1, mild at C3-C4 and C4-C5. There is tevdofcr-re-ctbcpj bilateral facet arthropathy scattered in cervical spine, most pronounced at C 2-C3 and C7-T1 on the right, and C3-C4 on the left. There is trace anterolisthesis at C7-T1. Visualized superior ribs are intact. Soft tissues: Prevertebral soft tissues are normal in thickness. No paravertebral hematomas. No apical pneumothoraces. Right apical scars. IMPRESSION: No cervical spine fracture. Degenerative changes as described. Dictated by: Deven Albert M.D. on 11/18/2020 at 9:42 Approved by: Deven Albert M.D. on 11/18/2020 at 9:46
--- NOTE | 2020-11-18 09:41 | DI.CT.S_ITS ---
PROCEDURE: CT PEL WO CON INDICATIONS: fall/pain TECHNIQUE: Noncontrast 3 mm axial sections acquired through the bony pelvis, with coronal and sagittal reformatting. COMPARISON: [facility], CT, CT PEL WO CON, 11/09/2020, 14:50. FINDINGS: Image quality: Excellent. Bones: No fracture or dislocation. Moderate degenerative disc disease in hips bilaterally. There is grade 1 anterolisthesis of L5 on S1. Moderate degenerative disc disease and severe facet arthropathy at L5-S1. Mild degenerative disease at L4-L5 Soft tissues: There is enlargement, edema and stranding of the right iliopsoas muscle. No soft tissue hematoma or mass. Diverticulosis without diverticulitis in sigmoid colon. Uterus is absent. Ugkt-fa-bzafyczl atherosclerosis. IMPRESSION: 1. No fracture or dislocation. 2. Enlargement, edema and stranding of the right iliopsoas muscle consistent with muscle strain and intramuscular hematoma. 3. Degenerative disc and facet disease in lumbar spine. Dictated by: Deven Albert M.D. on 11/18/2020 at 9:46 Approved by: Deven Albert M.D. on 11/18/2020 at 9:56
[2020-11-18] MEDS: ONDANSETRON 4 MG/2 ML INJ IV (10:17)
[2020-11-18] MEDS: SODIUM CHLORIDE 0.9% 1,000 ML 1000 ML IV (10:17)
--- NOTE | 2020-12-06 08:10 | PC.NURSE ---
Addendum entered by Deanna Sosa R.N. 12/06/20 08:10: Ammended for Late Entry: IV stop time for NS 1100 on 11/18/20 Original Note: IV stop time for NS 1100
== END 2020-11-18 11:00 | disposition home or self-care (01) ==
PROVIDERS: Emergency Provider Emergency Medicine; PCP Internal Medicine
DX: S30.0XXA Contusion of lower back and pelvis, initial encounter (principal); S00.03XA Contusion of scalp, initial encounter; R51.9 Headache, unspecified; R11.2 Nausea with vomiting, unspecified; Z95.2 Presence of prosthetic heart valve; W19.XXXA Unspecified fall, initial encounter
CPT/HCPCS: 36415; 70450; 72125; 72192; 73030; 96361; 96374; 99284; J2405

== ENCOUNTER → 2020-12-15 13:56 | Outpatient (CLI) | payer MEDICARE, SELFPAY ==
[2020-12-15 15:23] LABS: COVID19 -Nasal RAPID Negative (Negative)
== END ==
PROVIDERS: PCP Internal Medicine; Visit Provider Physician Assistant
DX: Z20.822 Contact with and (suspected) exposure to COVID-19 (principal)
CPT/HCPCS: 87635; C9803

== ENCOUNTER 2021-02-25 10:30 | Outpatient (RCR) | payer MEDICARE, SELFPAY | END 2021-02-25 11:30 | LOC: CAR 10:30 | PROVIDERS: PCP Internal Medicine; Referring Provider Internal Medicine Cardiovascular Disease; Visit Provider Internal Medicine Cardiovascular Disease | DX: Z95.2 Presence of prosthetic heart valve (principal) | CPT/HCPCS: 93798 ==

== ENCOUNTER 2021-04-13 22:36 | Emergency (ER) | payer MEDICARE, SELFPAY ==
[2021-04-13 22:36] VITALS: BP 203/79; PULSE 76; RESP 16; TEMP 36.8; O2SAT 96; BMI 29.5
[2021-04-13 22:39] VITALS: BP 203/79; PULSE 77; O2SAT 96
[2021-04-13 22:41] VITALS: BP 181/75; PULSE 75; O2SAT 96
--- NOTE | 2021-04-13 22:48 | DI.RAD.S_ITS ---
PROCEDURE: XR CHEST 1V INDICATIONS: chest pain TECHNIQUE: One view of the chest was acquired. COMPARISON: [facility], , CHEST 2 VIEW, 04/09/2010, 12:01. FINDINGS: Surgical changes and devices: Status post aortic valvuloplasty. Lungs and pleura: Mild bilateral lung interstitial prominence slightly progressed compared to prior examination.. No pleural effusions or pneumothorax. Mediastinum: Mediastinal contours appear normal. Heart size is normal. Bones and chest wall: No suspicious bony lesions. Overlying soft tissues appear unremarkable. IMPRESSION: No acute cardiopulmonary disease process. Dictated by: Jodie West MD, PhD on 04/14/2021 at 7:00 Approved by: Jodie West MD, PhD on 04/14/2021 at 7:02
--- NOTE | 2021-04-13 22:54 | PC.NURSE ---
Patient states a few days ago she had Jaw pain that then transitioned to bilateral shoulder and neck pain. Reports feeling more tired the last few days as well. Denies chest pain
[2021-04-13 22:59] LABS: Add Manual Diff / Slide Review NO; Basophils Absolute Auto 100 /uL (0-100); Basophils Percent Auto 1.4 % (0-2); Eosinophils Absolute Auto 1100 /uL (0-450); Eosinophils Percent Auto 10.6 % (2-4); Hematocrit 34.4 % (36-46); Hemoglobin 11.2 g/dL (12.0-16.0); Lymphocytes Absolute Auto 1400 /uL (1100-4500); Lymphocytes Percent Auto 13.2 % (25-40); Mean Corpuscular HGB Conc 32.4 % (30-36); Mean Corpuscular Hemoglobin 29.8 PG (26-34); Mean Corpuscular Volume 91.9 fL (80-100); Monocytes Absolute Auto 1400 /uL (0-900); Monocytes Percent Auto 13.3 % (3-14); Neutrophils Absolute Auto 6400 /uL (1500-7000); Neutrophils Percent Auto 61.5 % (50-75); Platelet Count 141 X10^3/uL (150-400); Red Blood Cell Count 3.75 X10^6/uL (4.0-5.2); Red Cell Distribution Width 15.2 % (11.6-14.8); White Blood Cell Count 10.4 X10^3/uL (4.5-11.0)
--- NOTE | 2021-04-13 22:59 | ED.EXTPRO ---
HPI - Extremity Problem General Chief complaint: Extremity Problem,Nontraumatic Stated complaint: Neck & Shoulder Pain Time Seen by Provider: 04/13/21 22:47 Source: patient and EMS Mode of arrival: EMS History of Present Illness HPI Narrative: Patient is an 85-year-old female who arrived by EMS evaluation of her left upper back/shoulder discomfort and also neck discomfort. She has had the discomfort for the past several days has worsened over the past couple hours. She does not know exactly what caused the symptoms to happen but it is worse with touching and also moving her neck. She has not tried anything for the symptoms prior to arrival. Related Data Home Medications Medication Instructions Recorded Confirmed FOLIC ACID (Folic Acid) 1 mg PO Q DAY #0 05/13/11 rosuvastatin 5 mg tablet (Crestor) 5 mg PO QDAY #0 05/13/11 leflunomide 20 mg tablet (Arava) 20 mg PO Q DAY #0 08/25/11 Previous Rx's Medication Instructions Recorded ondansetron 4 mg disintegrating 4 mg PO Q8H PRN #10 tab 11/18/20 tablet cyclobenzaprine 10 mg tablet 10 mg PO TID PRN #12 tab 04/13/21 lidocaine 5 % topical patch 1 patch TOPICAL DAILY #15 ea 04/13/21 Allergies Allergy/AdvReac Type Severity Reaction Status Date / Time NSAIDS (Non-Steroidal AdvReac Unknown Verified 11/09/20 14:44 Anti-Inflamma Review of Systems Constitutional Constitutional: Denies headache(s) ENT Ears, Nose, Mouth, and Throat: Denies headache(s) Cardiovascular Comments: No chest pain Respiratory Comments: No shortness of breath Gastrointestinal Gastrointestinal: Reports system reviewed and no additional complaints, except as documented Musculoskeletal Musculoskeletal: Denies tingling Integumentary/Breasts Skin/Breast: Reports system reviewed and no additional complaints, except as documented Neurologic Neurologic: Denies headache(s) and Denies tingling Hematologic/Lymphatic On Anticoagulants: No Patient History Medical History Rheumatoid arthritis Social History Smoking Status: Former smoker Smoking Status: Former smoker Substance Use Type: does not use Exam Initial Vital Signs Initial Vital Signs: Vital Signs Temperature 98.2 F 04/13/21 22:36 Pulse Rate 76 04/13/21 22:36 Respiratory Rate 16 04/13/21 22:36 Blood Pressure 203/79 H 04/13/21 22:36 Pulse Oximetry 96 04/13/21 22:36 Const General: cooperative and comfortable HENMT Head: normal to inspection Resp Auscultation: clear to auscultation bilaterally Cardio Rate: regular rate Rhythm: regular rhythm GI Inspection: normal to inspection Back/Spine/Pelvis Cervical Spine: cervical muscular tenderness, pain with cervical ROM and No cervical spinal tenderness Thoracic/Lumbar Spine: No thoracic spinal tenderness Skin General: no rashes or lesions noted Neuro General: patient alert, patient awake, patient oriented x3 and moves all extremities Extrem General: normal to inspection and capillary refill normal Psych Appearance: grossly normal and well kempt Course Orders Ordered: ED Orders 04/13/21 22:45 Complete Blood Count AUTO DIFF Stat Comprehensive Metabolic Panel Stat Lipase Stat Troponin & CK Cardiac Panel Stat 04/13/21 22:48 XR chest 1V Stat EKG-12 Lead Stat Discontinued Medications Cyclobenzaprine HCl (Cyclobenzaprine 10 Mg Tablet) 10 mg PO NOW ONE Stop: 04/13/21 23:00 Last Admin: 04/13/21 23:04 Dose: 10 mg Documented by: TRENA Cyclobenzaprine HCl (Cyclobenzaprine 10 Mg Prepack) 1 bottle MISC SEEINSTR ONE Stop: 04/13/21 23:46 Last Admin: 04/13/21 23:55 Dose: 1 bottle Documented by: TRENA Vital Signs Vital signs: Vital Signs - 8 hr 04/13/21 22:36 04/13/21 22:39 04/13/21 22:41 Temperature 98.2 F Pulse Rate 76 77 75 Respiratory Rate 16 Blood Pressure 203/79 H 203/79 H 181/75 H Pulse Oximetry 96 96 96 04/13/21 23:01 04/13/21 23:21 04/13/21 23:40 Temperature Pulse Rate 73 72 75 Respiratory Rate 26 H 12 15 Blood Pressure 184/77 H 172/123 H 183/112 H Pulse Oximetry 96 96 95 MDM - Extremity (Nontraumatic) Lab Data Attestation: I reviewed the patient's lab results. Result diagrams: 04/13/21 22:45 04/13/21 22:45 Labs: Lab Results 07/04/13/21 04/13/21 Range/Units 22:45 22:45 22:45 WBC 10.4 (4.5-11.0) X10^3/uL RBC 3.75 L (4.0-5.2) X10^6/uL Hgb 11.2 L (12.0-16.0) g/dL Hct 34.4 L (36-46) % MCV 91.9 (80-100) fL MCH 29.8 (26-34) PG MCHC 32.4 (30-36) % RDW 15.2 H (11.6-14.8) % Plt Count 141 L (150-400) X10^3/uL Neut % (Auto) 61.5 (50-75) % Lymph % (Auto) 13.2 L (25-40) % [place] % (Auto) 13.3 (3-14) % Eos % (Auto) 10.6 H (2-4) % Baso % (Auto) 1.4 (0-2) % Neut # (Auto) 6400 (4199-0117) /uL Lymph # (Auto) 1400 (6279-5754) /uL [place] # (Auto) 1400 H (0-900) /uL Eos # (Auto) 1100 H (0-450) /uL Baso # (Auto) 100 (0-100) /uL Sodium 138 (137-145) mmol/L Potassium 3.8 (3.4-5.1) mmol/L Chloride 105 (98-107) mmol/L Carbon Dioxide 27 (22-32) mmol/L BUN 23 H (7-17) mg/dL Creatinine 0.83 (0.52-1.04) mg/dL Estimated GFR > 60.0 (>60) mL/min BUN/Creatinine Ratio 27.7 H (6-22) Glucose 112 H (80-110) mg/dL Calcium 9.2 (8.4-10.2) mg/dL Total Bilirubin 0.1 L (0.2-1.3) mg/dL AST 32 (14-36) IU/L ALT 22 (<35) IU/L Alkaline Phosphatase 74 (38-126) U/L Total Creatine Kinase 246 H (30-135) U/L CK-MB (CK-2) 2.33 (<2.37) ng/mL CK-MB (CK-2) Rel Index 0.9 L (1.5-5.0) % Troponin I < 0.012 (0.01-0.034) ng/mL Total Protein 6.3 (6.3-8.2) g/dL Albumin 3.6 (3.5-5.0) g/dL Globulin 2.7 (1.7-4.1) g/dL Albumin/Globulin Ratio 1.3 (1.0-2.8) Lipase 90 (23-300) U/L Imaging Data Chest x-ray: Radiologist's Impression: No acute cardiopulmonary process. Mild bronchiectasis in the right lung base ECG Data Attestation EKG: I personally reviewed and interpreted this ECG as follows: Interpretation: Sinus rhythm Ventricular rate is 73 Normal axis Normal QRS Right bundle branch block Nonspecific ST T wave changes MDM Narrative Medical decision making narrative: Patient has clearly reproducible left-sided cervical muscular tenderness. She states that this is the tenderness that brought her into the emergency department. She does have a difficult time flexing and extending her neck because of the tenderness. She was given Flexeril which she states improved her symptoms somewhat and she was able to objectively move her neck better than what it was when she came in. Have low suspicion for ACS for dissection given her presentation today. I feel that we can hold on further workup for now. Will send home with a prescription for Flexeril. She was informed that this can make her drowsy shows a needs to be careful at whole. She expressed understanding and agreement. Discharge Plan Departure Patient Disposition: Home Clinical Impression: Cervical muscle strain Instructions: DI for Muscle Strain Activity Restrictions/Additional Instructions: The muscle relaxer that you were given today can make you drowsy so be careful when you go to stand up especially at night. You can use the lidocaine patches as needed as well. You could also to do easy measures such as massage and heat in ice and light stretching. Contact your primary doctor for follow-up. Return to the emergency department for any new or worsening symptoms Prescriptions: New cyclobenzaprine 10 mg tablet 10 mg PO TID PRN (Reason: muscle spasm) Qty: 12 RF: 0 lidocaine 5 % adhesive patch,medicated 1 patch topical DAILY Qty: 15 RF: 0 No Action FOLIC ACID (Folic Acid) 1 mg PO Q DAY Qty: 0 RF: 0 rosuvastatin [Crestor] 5 MG tablet 5 mg PO QDAY Qty: 0 RF: 0 leflunomide [Arava] 20 MG tablet 20 mg PO Q DAY Qty: 0 RF: 0 ondansetron 4 mg tablet,disintegrating 4 mg PO Q8H PRN (Reason: nausea and vomiting) Qty: 10 RF: 0 Referrals: Rogelio Levy MD [Primary Care Provider] -
[2021-04-13 23:01] VITALS: BP 184/77; PULSE 73; RESP 26; O2SAT 96
[2021-04-13] MEDS: CYCLOBENZAPRINE 10 MG TABLET PO (23:04)
[2021-04-13 23:05] LABS: Alanine Aminotransferase 22 IU/L (<35); Albumin 3.6 g/dL (3.5-5.0); Albumin Globulin Ratio 1.3 (1.0-2.8); Alkaline Phosphatase 74 U/L (38-126); Aspartate Aminotransferase 32 IU/L (14-36); BUN Creatinine Ratio 27.7 (6-22); Bilirubin Total 0.1 mg/dL (0.2-1.3); Blood Urea Nitrogen 23 mg/dL (7-17); Calcium 9.2 mg/dL (8.4-10.2); Carbon Dioxide 27 mmol/L (22-32); Chloride 105 mmol/L (98-107); Creatine Kinase 246 U/L (30-135); Estimated Glomerular Filt Rate > 60.0 mL/min (>60); Globulin 2.7 g/dL (1.7-4.1); Glucose 112 mg/dL (80-110); HEMOLYSIS < 15 (0-50); Lipase 90 U/L (23-300); Potassium 3.8 mmol/L (3.4-5.1); Sodium 138 mmol/L (137-145); Total Protein 6.3 g/dL (6.3-8.2)
[2021-04-13 23:16] LABS: Troponin I < 0.012 ng/mL (0.01-0.034)
[2021-04-13 23:20] LABS: CKMB % Relative Index 0.9 % (1.5-5.0); Creatine Kinase MB 2.33 ng/mL (<2.37)
[2021-04-13 23:21] VITALS: BP 172/123; PULSE 72; RESP 12; O2SAT 96
[2021-04-13 23:40] VITALS: BP 183/112; PULSE 75; RESP 15; O2SAT 95
[2021-04-13] MEDS: CYCLOBENZAPRINE 10 MG PREPACK 1 BOTTLE MISC (23:55)
== END 2021-04-14 00:05 | disposition home or self-care (01) ==
PROVIDERS: Emergency Provider Emergency Medicine; PCP Internal Medicine
DX: S16.1XXA Strain of muscle, fascia and tendon at neck level, initial encounter (principal); R07.9 Chest pain, unspecified
CPT/HCPCS: 36415; 71045; 80053; 82550; 82553; 83690; 84484; 85025; 93005; 93041; 99284

== ENCOUNTER → 2021-06-18 13:45 | Outpatient (CLI) | payer MEDICARE, SELFPAY ==
--- NOTE | 2021-06-18 | DI.ECHO.S_ITS ---
[place] +---------+ : : [address] : : : : [id number] : : : : Phone: [phone]+ Echocardiogram Report + + :Name: ANUP PANG Study Date: 06/18/2021 Height: 62.5 in: :[facility] ReadingLocation: Weight: 160 lb : : Gender: Female BSA: 1.7 m2 : :: 1935 Age: 85 yrs BP: 168/90 mmHg: :Reason For Study: PROSTHETIC HEART VALVE : :Ordering Physician: LOLIS, : :DELPHINE Performed By: Mary Kay Barclay : :Referring: DELPHINE DANIELLE : + + Interpretation Summary The left ventricle is normal in size and wall thickness. The ejection fraction is estimated to be 60-65%. The right ventricle is normal in size and function. There is a bioprosthetic aortic valve. Bioprosthetic aortic valve is new finding. The prosthetic aortic valve is well-seated. The aortic valve mean gradient is 12 mmHg. The peak aortic velocity is 2.35 m/sec. The peak aortic velocity on the previous exam was 4.1 m/sec. There is mild tricuspid regurgitation. Compared to the prior echo exam, there has been no change in TR severity. The right ventricular systolic pressure is estimated to be at least 29 mmHg based on an estimated right atrial pressure of 3 mm Hg. The ascending aorta is mildly enlarged. 3.5 cm in diameter. Previously it was 3.3 cm. There is mild luminal irregularity and echogenicity in the abdominal aorta, suggestive of aortic atherosclerotic disease. Procedure: A two-dimensional transthoracic echocardiogram with color flow and Doppler was performed. The study quality was technically adequate. Comparison is made with the echocardiogram of 01/22/2020. The patient was in sinus rhythm with heart rates between 55-65 bpm during the exam. The patient had a bundle branch block rhythm during the exam. Left Ventricle: The left ventricle is normal in size and wall thickness. There is no thrombus. The ejection fraction is estimated to be 60-65%. There are no focal wall motion abnormalities. Diastolic parameters suggest a relaxation abnormality of the left ventricle, consistent with probable normal filling pressures. Right Ventricle: The right ventricle is normal in size and function. Atria: The left atrium is mildly dilated. The left atrium has remained unchanged in size since the prior echo exam. Right atrial size is normal. There is no Doppler evidence for an interatrial shunt. Mitral Valve: The mitral valve leaflets appear mildly thickened, but open well. There is moderate mitral annular calcification. The mitral valve leaflets are mildly calcified. No significant mitral valve stenosis. There is mild mitral regurgitation. Compared to the prior echo study, there has been no change in the severity of mitral regurgitation. Aortic Valve: There is a bioprosthetic aortic valve. The prosthetic aortic valve is well-seated. The peak aortic velocity on the previous exam was 4.1 m/sec. The aortic valve mean gradient is 12 mmHg. The peak aortic velocity is 2.35 m/sec. No aortic regurgitation is present. Tricuspid Valve: The tricuspid valve is normal. There is mild tricuspid regurgitation. The right ventricular systolic pressure is estimated to be at least 29 mmHg based on an estimated right atrial pressure of 3 mm Hg. Compared to the prior echo exam, there has been no change in TR severity. Pulmonic Valve: The pulmonic valve is not well visualized. Great Vessels: The ascending aorta is mildly enlarged. There is mild luminal irregularity and echogenicity in the abdominal aorta, suggestive of aortic atherosclerotic disease. The IVC is of normal diameter and collapses greater than 50% with a sniff. This suggests a low right atrial pressure of 3 mm Hg. Pericardium/ Pleura There is no pericardial effusion. There is an anterior echo-free space consistent with a fat pad. There is no pleural effusion. MMode/2D Measurements & Calculations LVIDd: 4.8 cm LVOT diam: 2.0 cm LVIDs: 3.2 cm asc Aorta Diam: 3.5 cm FS: 33.1 % Ao Arch Diam (Prox Trans): 2.8 cm IVSd: 0.93 cm LVPWd: 0.98 cm LV sal[place]. diameter/BSA (cm/m^2): 2.8 LV sys. diameter/BSA (cm/m^2): 1.8 LA A2 area: 22.9 cm2 RA long axis: 4.8 cm LA A4 area: 20.7 cm2 RA area: 17.8 cm2 LA length (vol): 5.5 cm RA vol: 55.4 ml LA vol: 72.6 ml RA : 31.7 ml/m2 LA vol index: 41.5 ml/m2 IVC diam: 1.4 cm RVD1 (basal): 3.6 cm TAPSE: 3.1 cm Doppler Measurements & Calculations Ao V2 max: 235.4 cm/sec LVOT Max Cecil: 108.8 cm/sec Ao V2 mean: 163.1 cm/sec LV V1 max P.7 mmHg Ao max P.2 mmHg LV V1 VTI: 27.4 cm Ao mean P.0 mmHg EN(I,D): 1.6 cm2 Ao V2 VTI: 55.4 cm EN(V,D): 1.5 cm2 sev ratio: 0.49 EN indexed to BSA (cm^2/m^2): 0.92 MV E max cecil: 97.8 cm/sec TR max cecil: 253.3 cm/sec MV A max cecil: 112.6 cm/sec TR max P.7 mmHg MV E/A: 0.87 PA V2 max: 84.7 cm/sec Med Peak E' Cecil: 6.7 cm/sec PA V2 mean: 56.9 cm/sec E/E' med: 14.7 PA mean P.5 mmHg Lat Peak E' Cecil: 5.8 cm/sec PA pr(Accel): 22.5 mmHg E/E' lat: 17.0 E/e' average: 15.8 MV dec time: 0.28 sec SV(LVOT): 88.8 ml Reading Physician:04:16 PM
== END ==
PROVIDERS: PCP Internal Medicine; Referring Provider Internal Medicine Cardiovascular Disease; Visit Provider Internal Medicine Cardiovascular Disease
DX: I08.1 Rheumatic disorders of both mitral and tricuspid valves (principal); I77.89 Other specified disorders of arteries and arterioles; I10 Essential (primary) hypertension; Z95.2 Presence of prosthetic heart valve
CPT/HCPCS: 93306

== ENCOUNTER 2021-10-09 15:30 | Emergency (ER) | payer MEDICARE, SELFPAY ==
[2021-10-09] VITALS (26 sets, daily range): BP systolic 151–217; BP diastolic 72–126; PULSE 67–95; RESP 12–36; TEMP 36.7; O2SAT 95–100; BMI 36.6
--- NOTE | 2021-10-09 16:02 | ED.GENADULT ---
HPI - General Adult <Ruben Zuluaga DO - Last Filed: 10/10/21 07:07> General Chief complaint: Dizziness Stated complaint: High BP Time Seen by Provider: 10/09/21 15:42 Source: patient Mode of arrival: Ambulatory Limitations: no limitations History of Present Illness HPI narrative: Patient is a 85-year-old female. 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 Is not on anticoagulation. Is here for evaluation of elevated blood pressure. She denies chest pain. She states she has felt somewhat unsteady on her feet and also shortness of breath. The unsteadiness does not appear to be new in the shortness of breath is occasional and is also not new. She does have lower extremity swelling but this is not new. She did have a slight headache in the back of her head but that has improved. She does take her blood pressure at home a couple times we can states that the systolic blood pressure runs anywhere from the 120s to 140s. Her blood pressure was elevated earlier today given her other symptoms she decided to come in to get evaluated. Related Data Home Medications Medication Instructions Recorded Confirmed FOLIC ACID (Folic Acid) 1 mg PO Q DAY #0 05/13/11 rosuvastatin 5 mg tablet (Crestor) 5 mg PO QDAY #0 05/13/11 leflunomide 20 mg tablet (Arava) 20 mg PO Q DAY #0 08/25/11 Previous Rx's Medication Instructions Recorded ondansetron 4 mg disintegrating 4 mg PO Q8H PRN #10 tab 11/18/20 tablet cyclobenzaprine 10 mg tablet 10 mg PO TID PRN #12 tab 04/13/21 lidocaine 5 % topical patch 1 patch TOPICAL DAILY #15 ea 04/13/21 Allergies Allergy/AdvReac Type Severity Reaction Status Date / Time NSAIDS (Non-Steroidal AdvReac Unknown Verified 11/09/20 14:44 Anti-Inflamma Review of Systems <Ruben Zuluaga DO - Last Filed: 10/10/21 07:07> Constitutional Constitutional: Reports system reviewed and no additional complaints, except as documented Cardiovascular Cardiovascular: Reports as per HPI and Reports system reviewed and no additional complaints, except as documented Respiratory Respiratory: Reports as per HPI and Reports system reviewed and no additional complaints, except as documented Gastrointestinal Gastrointestinal: Reports system reviewed and no additional complaints, except as documented Integumentary/Breasts Skin/Breast: Reports system reviewed and no additional complaints, except as documented Neurologic Neurologic: Reports system reviewed and no additional complaints, except as documented Hematologic/Lymphatic On Anticoagulants: No Patient History <DO Lona Holden Last Filed: 10/10/21 07:07> Medical History Rheumatoid arthritis Social History Smoking Status: Former smoker Smoking Status: Former smoker Substance Use Type: does not use Exam <DO Lona Holden Last Filed: 10/10/21 07:07> Initial Vital Signs Initial Vital Signs: Vital Signs Pulse Rate 95 H 10/09/21 15:34 Pulse Oximetry 95 10/09/21 15:34 HENMT Head: normal to inspection and normocephalic Resp Effort & Inspection: normal respiratory effort Auscultation: clear to auscultation bilaterally Cardio Rate: regular rate Rhythm: regular rhythm Heart Sounds: murmur Skin General: no rashes or lesions noted Neuro General: patient alert, patient awake and moves all extremities Extrem Other: 2+ bilateral lower extremity edema Psych Appearance: grossly normal and well kempt <Cb Aviles DO - Last Filed: 10/09/21 22:15> Initial Vital Signs Initial Vital Signs: Vital Signs Pulse Rate 95 H 10/09/21 15:34 Pulse Oximetry 95 10/09/21 15:34 Scores <DO Lona Holden Last Filed: 10/10/21 07:07> GCS Tereso coma scale eye opening: Spontaneous [place] coma scale verbal response: Orientated Tereso coma scale motor response: Obey commands [place] coma scale total score: 15 <Cb Aviles DO - Last Filed: 10/09/21 22:15> GCS Tereso coma scale total score: 15 Course <DO Lona Holden Last Filed: 10/10/21 07:07> Orders Ordered: Discontinued Medications Carvedilol (Carvedilol 3.125 Mg Tablet) 6.25 mg PO NOW ONE Stop: 10/09/21 20:10 Last Admin: 10/09/21 20:31 Dose: 6.25 mg Documented by: DENG Vital Signs Vital signs: Vital Signs - 8 hr 10/09/21 15:34 10/09/21 15:35 10/09/21 15:39 Temperature 98.1 F Pulse Rate 95 H 95 H 76 Respiratory Rate 18 Blood Pressure 217/100 H 217/100 H Pulse Oximetry 95 95 98 10/09/21 15:46 10/09/21 16:00 10/09/21 16:01 Temperature Pulse Rate 71 69 68 Respiratory Rate 18 36 H 33 H Blood Pressure 193/80 H 179/78 H Pulse Oximetry 98 98 99 10/09/21 16:30 10/09/21 17:00 10/09/21 17:30 Temperature Pulse Rate 67 72 69 Respiratory Rate 12 21 13 Blood Pressure 176/77 H 180/81 H 200/84 H Pulse Oximetry 97 98 98 10/09/21 18:00 10/09/21 18:01 10/09/21 18:30 Temperature Pulse Rate 70 71 67 Respiratory Rate 18 21 18 Blood Pressure 173/117 H 179/81 H Pulse Oximetry 98 98 98 10/09/21 19:00 10/09/21 19:04 10/09/21 19:30 Temperature Pulse Rate 71 72 74 Respiratory Rate 26 H 15 13 Blood Pressure 151/72 H Pulse Oximetry 98 98 98 10/09/21 19:31 10/09/21 20:04 10/09/21 20:05 Temperature Pulse Rate 73 71 82 Respiratory Rate 19 Blood Pressure 212/78 H 199/94 H Pulse Oximetry 98 98 97 10/09/21 20:30 10/09/21 21:00 10/09/21 21:01 Temperature Pulse Rate 77 81 75 Respiratory Rate Blood Pressure 200/88 H 178/82 H Pulse Oximetry 98 97 97 <Cb Aviles DO - Last Filed: 10/09/21 22:15> Orders Ordered: Discontinued Medications Carvedilol (Carvedilol 3.125 Mg Tablet) 6.25 mg PO NOW ONE Stop: 10/09/21 20:10 Last Admin: 10/09/21 20:31 Dose: 6.25 mg Documented by: GABIYLOR Vital Signs Vital signs: Vital Signs - 8 hr 10/09/21 15:34 10/09/21 15:35 10/09/21 15:39 Temperature 98.1 F Pulse Rate 95 H 95 H 76 Respiratory Rate 18 Blood Pressure 217/100 H 217/100 H Pulse Oximetry 95 95 98 10/09/21 15:46 10/09/21 16:00 10/09/21 16:01 Temperature Pulse Rate 71 69 68 Respiratory Rate 18 36 H 33 H Blood Pressure 193/80 H 179/78 H Pulse Oximetry 98 98 99 10/09/21 16:30 10/09/21 17:00 10/09/21 17:30 Temperature Pulse Rate 67 72 69 Respiratory Rate 12 21 13 Blood Pressure 176/77 H 180/81 H 200/84 H Pulse Oximetry 97 98 98 10/09/21 18:00 10/09/21 18:01 10/09/21 18:30 Temperature Pulse Rate 70 71 67 Respiratory Rate 18 21 18 Blood Pressure 173/117 H 179/81 H Pulse Oximetry 98 98 98 10/09/21 19:00 10/09/21 19:04 10/09/21 19:30 Temperature Pulse Rate 71 72 74 Respiratory Rate 26 H 15 13 Blood Pressure 151/72 H Pulse Oximetry 98 98 98 10/09/21 19:31 10/09/21 20:04 10/09/21 20:05 Temperature Pulse Rate 73 71 82 Respiratory Rate 19 Blood Pressure 212/78 H 199/94 H Pulse Oximetry 98 98 97 10/09/21 20:30 10/09/21 21:00 10/09/21 21:01 Temperature Pulse Rate 77 81 75 Respiratory Rate Blood Pressure 200/88 H 178/82 H Pulse Oximetry 98 97 97 Medical Decision Making <Ruben Zuluaga, - Last Filed: 10/10/21 07:07> Lab Data Lab results reviewed: Yes I reviewed the patient's lab results. Result diagrams: 10/09/21 15:40 10/09/21 15:40 Labs: Lab Results 10/09/21 10/09/21 10/09/21 Range/Units 15:40 15:40 18:51 WBC 6.9 (4.5-11.0) X10^3/uL RBC 3.52 L (4.0-5.2) X10^6/uL Hgb 11.1 L (12.0-16.0) g/dL Hct 33.1 L (36-46) % MCV 94.0 (80-100) fL MCH 31.5 (26-34) PG MCHC 33.5 (30-36) % RDW 14.5 (11.6-14.8) % Plt Count 144 L (150-400) X10^3/uL Neut % (Auto) 55.9 (50-75) % Lymph % (Auto) 21.4 L (25-40) % Jasper % (Auto) 13.8 (3-14) % Eos % (Auto) 7.3 H (2-4) % Baso % (Auto) 1.6 (0-2) % Neut # (Auto) 3900 (3655-2842) /uL Lymph # (Auto) 1500 (2448-1865) /uL Jasper # (Auto) 900 (0-900) /uL Eos # (Auto) 500 H (0-450) /uL Baso # (Auto) 100 (0-100) /uL Sodium 138 (137-145) mmol/L Potassium 3.7 (3.4-5.1) mmol/L Chloride 106 (98-107) mmol/L Carbon Dioxide 30 (22-32) mmol/L BUN 22 H (7-17) mg/dL Creatinine 0.82 (0.52-1.04) mg/dL Estimated GFR > 60.0 (>60) mL/min BUN/Creatinine Ratio 26.8 H (6-22) Glucose 103 (80-110) mg/dL Calcium 9.7 (8.4-10.2) mg/dL Total Bilirubin 0.3 (0.2-1.3) mg/dL AST 37 H (14-36) IU/L ALT 22 (<35) IU/L Alkaline Phosphatase 58 (38-126) U/L Total Creatine Kinase 274 H (30-135) U/L CK-MB (CK-2) 3.62 H (<2.37) ng/mL CK-MB (CK-2) Rel Index 1.3 L (1.5-5.0) % Troponin I 0.018 0.029 (0.01-0.034) ng/mL NT-Pro-B Natriuret Pep 503 H (<450) pg/mL Total Protein 6.7 (6.3-8.2) g/dL Albumin 3.8 (3.5-5.0) g/dL Globulin 2.9 (1.7-4.1) g/dL Albumin/Globulin Ratio 1.3 (1.0-2.8) Lipase 62 (23-300) U/L 10/09/21 Range/Units 21:10 WBC (4.5-11.0) X10^3/uL RBC (4.0-5.2) X10^6/uL Hgb (12.0-16.0) g/dL Hct (36-46) % MCV (80-100) fL MCH (26-34) PG MCHC (30-36) % RDW (11.6-14.8) % Plt Count (150-400) X10^3/uL Neut % (Auto) (50-75) % Lymph % (Auto) (25-40) % Jasper % (Auto) (3-14) % Eos % (Auto) (2-4) % Baso % (Auto) (0-2) % Neut # (Auto) (5115-3039) /uL Lymph # (Auto) (7439-2167) /uL Jasper # (Auto) (0-900) /uL Eos # (Auto) (0-450) /uL Baso # (Auto) (0-100) /uL Sodium (137-145) mmol/L Potassium (3.4-5.1) mmol/L Chloride (98-107) mmol/L Carbon Dioxide (22-32) mmol/L BUN (7-17) mg/dL Creatinine (0.52-1.04) mg/dL Estimated GFR (>60) mL/min BUN/Creatinine Ratio (6-22) Glucose (80-110) mg/dL Calcium (8.4-10.2) mg/dL Total Bilirubin (0.2-1.3) mg/dL AST (14-36) IU/L ALT (<35) IU/L Alkaline Phosphatase (38-126) U/L Total Creatine Kinase (30-135) U/L CK-MB (CK-2) (<2.37) ng/mL CK-MB (CK-2) Rel Index (1.5-5.0) % Troponin I 0.030 (0.01-0.034) ng/mL NT-Pro-B Natriuret Pep (<450) pg/mL Total Protein (6.3-8.2) g/dL Albumin (3.5-5.0) g/dL Globulin (1.7-4.1) g/dL Albumin/Globulin Ratio (1.0-2.8) Lipase (23-300) U/L Imaging Data Chest x-ray: Radiologist's Impression: [address] [address] XRay Report Signed Patient: Екатерина Garsia MR#: [id number] : 1935 Acct:[id number] Age/Sex: 85 / F Date of Service: 10/09/21 Loc: ED Accession Number: [id number] ?? Procedure: XR chest 1V Ordering Provider: Ruben Zuluaga D.O. PROCEDURE:? XR CHEST 1V ? INDICATIONS:? SOB ? TECHNIQUE:? One view of the chest was acquired.? ? COMPARISON:? [facility], CR, XR CHEST 1V, 04/13/2021, 22:51. ? FINDINGS:? ? Surgical changes and devices:? Overlying monitoring wires.? Aortic valvuloplasty cage. ? Lungs and pleura:? Lungs are clear.? No pleural effusions or pneumothorax.? ? Mediastinum:? Mediastinal contours appear normal.? Heart size is normal.? ? Bones and chest wall:? No suspicious bony lesions.? Overlying soft tissues appear unremarkable.? ? IMPRESSION:? 1. No acute cardiopulmonary disease.? 2. Aortic valve replacement.? ? ? Dictated by: Philomena Zuleta M.D. on 10/09/2021 at 16:45 ? ? Approved by: Philomena Zuleta M.D. on 10/09/2021 at 16:46?? ECG Data Attestation: I personally reviewed and interpreted this ECG as follows: Interpretation: Sinus rhythm Ventricular rate of 69 Occasional PACs Right bundle branch block Normal QTC No ST T wave changes MDM Narrative Medical decision making narrative: Lightheadedness and shortness of breath and lower extremity swelling are not necessarily new. Her blood pressure elevation is new today. It did improve without pharmaceutical intervention here in the ER. Initial labs reassuring. Repeat troponin pending. Care turned over to Dr. Aviles all changes should to follow up in dispositioned <Cb Aviles DO - Last Filed: 10/09/21 22:15> Lab Data Labs: Lab Results 10/09/21 10/09/21 10/09/21 Range/Units 15:40 15:40 18:51 WBC 6.9 (4.5-11.0) X10^3/uL RBC 3.52 L (4.0-5.2) X10^6/uL Hgb 11.1 L (12.0-16.0) g/dL Hct 33.1 L (36-46) % MCV 94.0 (80-100) fL MCH 31.5 (26-34) PG MCHC 33.5 (30-36) % RDW 14.5 (11.6-14.8) % Plt Count 144 L (150-400) X10^3/uL Neut % (Auto) 55.9 (50-75) % Lymph % (Auto) 21.4 L (25-40) % Jasper % (Auto) 13.8 (3-14) % Eos % (Auto) 7.3 H (2-4) % Baso % (Auto) 1.6 (0-2) % Neut # (Auto) 3900 (3854-0611) /uL Lymph # (Auto) 1500 (4364-2489) /uL Jasper # (Auto) 900 (0-900) /uL Eos # (Auto) 500 H (0-450) /uL Baso # (Auto) 100 (0-100) /uL Sodium 138 (137-145) mmol/L Potassium 3.7 (3.4-5.1) mmol/L Chloride 106 (98-107) mmol/L Carbon Dioxide 30 (22-32) mmol/L BUN 22 H (7-17) mg/dL Creatinine 0.82 (0.52-1.04) mg/dL Estimated GFR > 60.0 (>60) mL/min BUN/Creatinine Ratio 26.8 H (6-22) Glucose 103 (80-110) mg/dL Calcium 9.7 (8.4-10.2) mg/dL Total Bilirubin 0.3 (0.2-1.3) mg/dL AST 37 H (14-36) IU/L ALT 22 (<35) IU/L Alkaline Phosphatase 58 (38-126) U/L Total Creatine Kinase 274 H (30-135) U/L CK-MB (CK-2) 3.62 H (<2.37) ng/mL CK-MB (CK-2) Rel Index 1.3 L (1.5-5.0) % Troponin I 0.018 0.029 (0.01-0.034) ng/mL NT-Pro-B Natriuret Pep 503 H (<450) pg/mL Total Protein 6.7 (6.3-8.2) g/dL Albumin 3.8 (3.5-5.0) g/dL Globulin 2.9 (1.7-4.1) g/dL Albumin/Globulin Ratio 1.3 (1.0-2.8) Lipase 62 (23-300) U/L 10/09/21 Range/Units 21:10 WBC (4.5-11.0) X10^3/uL RBC (4.0-5.2) X10^6/uL Hgb (12.0-16.0) g/dL Hct (36-46) % MCV (80-100) fL MCH (26-34) PG MCHC (30-36) % RDW (11.6-14.8) % Plt Count (150-400) X10^3/uL Neut % (Auto) (50-75) % Lymph % (Auto) (25-40) % Jasper % (Auto) (3-14) % Eos % (Auto) (2-4) % Baso % (Auto) (0-2) % Neut # (Auto) (7026-4532) /uL Lymph # (Auto) (0539-8591) /uL Jasper # (Auto) (0-900) /uL Eos # (Auto) (0-450) /uL Baso # (Auto) (0-100) /uL Sodium (137-145) mmol/L Potassium (3.4-5.1) mmol/L Chloride (98-107) mmol/L Carbon Dioxide (22-32) mmol/L BUN (7-17) mg/dL Creatinine (0.52-1.04) mg/dL Estimated GFR (>60) mL/min BUN/Creatinine Ratio (6-22) Glucose (80-110) mg/dL Calcium (8.4-10.2) mg/dL Total Bilirubin (0.2-1.3) mg/dL AST (14-36) IU/L ALT (<35) IU/L Alkaline Phosphatase (38-126) U/L Total Creatine Kinase (30-135) U/L CK-MB (CK-2) (<2.37) ng/mL CK-MB (CK-2) Rel Index (1.5-5.0) % Troponin I 0.030 (0.01-0.034) ng/mL NT-Pro-B Natriuret Pep (<450) pg/mL Total Protein (6.3-8.2) g/dL Albumin (3.5-5.0) g/dL Globulin (1.7-4.1) g/dL Albumin/Globulin Ratio (1.0-2.8) Lipase (23-300) U/L MDM Narrative Medical decision making narrative: Lightheadedness and shortness of breath and lower extremity swelling are not necessarily new. Her blood pressure elevation is new today. It did improve without pharmaceutical intervention here in the ER. Initial labs reassuring. Repeat troponin pending. Care turned over to Dr. Aviles all changes should to follow up in dispositioned 1800 (Stefan) -patient received in sign-out from Dr. Zuluaga. I performed an independent history and physical exam. Patient has largely been asymptomatic for the duration of her visit and those symptoms that brought her in our in many ways chronic. She did have a subtle bump in her 2nd troponin though it was still well below any caught office. She was given her evening antihypertensives and blood pressure dropped into the 170s. She rests comfortably and a 3rd troponin was essentially unchanged. Multiple diagnoses considered including hypertensive emergency, ischemic disease and other. There is no indication of an acute event which would require a specific or immediate intervention. She is given extensive return precautions, which she understands as evidenced by her ability to verbalize these back to me. She has had her questions answered to her apparent satisfaction. Discharge Plan Departure Patient Disposition: Home Clinical Impression: Hypertension Instructions: Essential Hypertension Activity Restrictions/Additional Instructions: *You have been diagnosed with [mild symptoms, likely due to elevated blood pressure. Your history, physical exam and labs are very reassuring and there is no evidence of serious cardiac event or other diagnosis which would require a specific or immediate intervention *What to do: *Please continue to take your regular medications as directed. [ ] New medication prescriptions sent to your pharmacy: [ ] [ ] New medication written as a paper prescription [ ] No new medications given *Please follow up with your primary care provider in 2-3 days, call for an appointment. Let them know you were seen in the Emergency Department and that we ask that you be seen in follow up. We will electronically transmit a record of today's note if your PCP is in our system *If you do not have a primary care provider please contact the [facility] Resource line at [phone]. They will ask some questions about your medical history and help get you set up with a doctor in the community. *Return to Emergency Department if you should have any new, worsening or concerning symptoms, such as [fever greater than 101 F, shaking chills, worsening pain, persistent vomiting or other bothersome symptoms] Prescriptions: No Action FOLIC ACID (Folic Acid) 1 mg PO Q DAY Qty: 0 0RF rosuvastatin [Crestor] 5 MG tablet 5 mg PO QDAY Qty: 0 0RF leflunomide [Arava] 20 MG tablet 20 mg PO Q DAY Qty: 0 0RF ondansetron 4 mg tablet,disintegrating 4 mg PO Q8H PRN (Reason: nausea and vomiting) Qty: 10 0RF cyclobenzaprine 10 mg tablet 10 mg PO TID PRN (Reason: muscle spasm) Qty: 12 0RF lidocaine 5 % adhesive patch,medicated 1 patch topical DAILY Qty: 15 0RF Rx Instructions: leave on most painful area for up to 12 hrs Referrals: Rogelio Levy MD [Primary Care Provider] -
--- NOTE | 2021-10-09 16:30 | DI.RAD.S_ITS ---
PROCEDURE: XR CHEST 1V INDICATIONS: SOB TECHNIQUE: One view of the chest was acquired. COMPARISON: [facility], CR, XR CHEST 1V, 04/13/2021, 22:51. FINDINGS: Surgical changes and devices: Overlying monitoring wires. Aortic valvuloplasty cage. Lungs and pleura: Lungs are clear. No pleural effusions or pneumothorax. Mediastinum: Mediastinal contours appear normal. Heart size is normal. Bones and chest wall: No suspicious bony lesions. Overlying soft tissues appear unremarkable. IMPRESSION: 1. No acute cardiopulmonary disease. 2. Aortic valve replacement. Dictated by: Philomena Zuleta M.D. on 10/09/2021 at 16:45 Approved by: Philomena Zuleta M.D. on 10/09/2021 at 16:46
[2021-10-09 16:42] LABS: Add Manual Diff / Slide Review NO; Basophils Absolute Auto 100 /uL (0-100); Basophils Percent Auto 1.6 % (0-2); Eosinophils Absolute Auto 500 /uL (0-450); Eosinophils Percent Auto 7.3 % (2-4); Hematocrit 33.1 % (36-46); Hemoglobin 11.1 g/dL (12.0-16.0); Lymphocytes Absolute Auto 1500 /uL (1100-4500); Lymphocytes Percent Auto 21.4 % (25-40); Mean Corpuscular HGB Conc 33.5 % (30-36); Mean Corpuscular Hemoglobin 31.5 PG (26-34); Monocytes Absolute Auto 900 /uL (0-900); Monocytes Percent Auto 13.8 % (3-14); Neutrophils Absolute Auto 3900 /uL (1500-7000); Neutrophils Percent Auto 55.9 % (50-75); Platelet Count 144 X10^3/uL (150-400); Red Blood Cell Count 3.52 X10^6/uL (4.0-5.2); Red Cell Distribution Width 14.5 % (11.6-14.8); White Blood Cell Count 6.9 X10^3/uL (4.5-11.0)
[2021-10-09 16:43] LABS: Alanine Aminotransferase 22 IU/L (<35); Albumin 3.8 g/dL (3.5-5.0); Albumin Globulin Ratio 1.3 (1.0-2.8); Alkaline Phosphatase 58 U/L (38-126); Aspartate Aminotransferase 37 IU/L (14-36); BUN Creatinine Ratio 26.8 (6-22); Bilirubin Total 0.3 mg/dL (0.2-1.3); Blood Urea Nitrogen 22 mg/dL (7-17); Calcium 9.7 mg/dL (8.4-10.2); Carbon Dioxide 30 mmol/L (22-32); Chloride 106 mmol/L (98-107); Creatine Kinase 274 U/L (30-135); Estimated Glomerular Filt Rate > 60.0 mL/min (>60); Globulin 2.9 g/dL (1.7-4.1); Glucose 103 mg/dL (80-110); HEMOLYSIS < 15 (0-50); Lipase 62 U/L (23-300); Potassium 3.7 mmol/L (3.4-5.1); Sodium 138 mmol/L (137-145); Total Protein 6.7 g/dL (6.3-8.2)
[2021-10-09 16:55] LABS: NT-proBNP (BNP-Adult 18+) 503 pg/mL (<450); Troponin I 0.018 ng/mL (0.01-0.034)
[2021-10-09 16:59] LABS: CKMB % Relative Index 1.3 % (1.5-5.0); Creatine Kinase MB 3.62 ng/mL (<2.37)
[2021-10-09 19:40] LABS: Troponin I 0.029 ng/mL (0.01-0.034)
[2021-10-09] MEDS: carvediloL 3.125 MG TABLET 6.25 MG PO (20:31)
== END 2021-10-09 22:24 | disposition home or self-care (01) ==
PROVIDERS: Emergency Medicine; Emergency Provider Emergency Medicine; PCP Internal Medicine
DX: I10 Essential (primary) hypertension (principal); Z87.891 Personal history of nicotine dependence
CPT/HCPCS: 36415; 71045; 80053; 82550; 82553; 83690; 83880; 84484; 85025; 93005; 93010; 99284

== ENCOUNTER → 2022-12-20 | Outpatient (CLI) | payer MEDICARE, SELFPAY ==
--- NOTE | 2022-12-20 | DI.ECHO.S_ITS ---
[facility]---------+ [facility] +---------+ : : [address] : [address] [place] : : : : [id number] : : : : Phone: [phone]+ Echocardiogram Report + + :Name: ANUP PANG Study Date: 12/20/2022 Height: 63 in : :[facility] ReadingLocation: Weight: 175 lb : : Gender: Female BSA: 1.8 m2 : :: 1935 Age: 87 yrs BP: 142/78 mmHg: :Reason For Study: AORTIC VALVE REPLACEMENT HR: [id number] : :Ordering Physician: LOLIS, : :DELPHINE Performed By: [employer] : :Referring: DELPHINE DANIELLE : + + Interpretation Summary The left ventricle is normal in size and wall thickness. The ejection fraction is estimated to be 65-70%. Previous LV ejection fraction 60 to 65%. Diastolic parameters suggest a pseudonormalization pattern, consistent with probable elevated filling pressures. Previously relaxation type of diastolic dysfunction. The right ventricle is normal in size and function. There is a bioprosthetic aortic valve. The prosthetic aortic valve is well-seated. The peak aortic velocity is 2.8 m/sec. The aortic valve mean gradient is 17 mmHg. The peak aortic velocity on the previous exam was 2.35 m/sec. There is mild tricuspid regurgitation. Compared to the prior echo exam, there has been no change in TR severity. The right ventricular systolic pressure is estimated to be at least 40 mmHg based on an estimated right atrial pressure of 8 mm Hg. Compared to the prior echo exam, there has been an increase in the severity of pulmonary hypertension. Procedure: A two-dimensional transthoracic echocardiogram with color flow and Doppler was performed. The study quality was technically adequate. Comparison is made with the echocardiogram of 06/18/2021. The patient was in normal sinus rhythm during the exam. The patient had occasional PACs during the exam. Left Ventricle: The left ventricle is normal in size and wall thickness. There is no thrombus. The ejection fraction is estimated to be 65-70%. Left ventricular systolic function is normal. There are no focal wall motion abnormalities. Diastolic parameters suggest a pseudonormalization pattern, consistent with probable elevated filling pressures. Right Ventricle: The right ventricle is normal in size and function. Atria: The left atrium is mildly dilated. There has been no significant change since the previous study. Right atrial size is normal. There is no Doppler evidence for an interatrial shunt. Mitral Valve: There is moderate mitral annular calcification. The mitral valve leaflets are mildly calcified. No significant mitral valve stenosis. There is mild mitral regurgitation. Compared to the prior echo study, there has been no change in the severity of mitral regurgitation. Aortic Valve: There is a bioprosthetic aortic valve. The prosthetic aortic valve is well-seated. The prosthetic aortic valve is not well visualized. The peak aortic velocity is 2.8 m/sec. The aortic valve mean gradient is 17 mmHg. The peak aortic velocity on the previous exam was 2.35 m/sec. No aortic regurgitation is present. Tricuspid Valve: The tricuspid valve is normal in structure and function. The right ventricular systolic pressure is estimated to be at least 40 mmHg based on an estimated right atrial pressure of 8 mm Hg. There is mild tricuspid regurgitation. Compared to the prior echo exam, there has been no change in TR severity. Compared to the prior echo exam, there has been an increase in the severity of pulmonary hypertension. Pulmonic Valve: The pulmonic valve is not well visualized. There is no pulmonic valvular regurgitation. Great Vessels: The aortic root is normal size. The ascending aorta is normal in size. The IVC is dilated (diameter is greater than 2.1 cm) yet it collapses greater than 50% with a sniff. This suggests a right atrial pressure of 8 mm Hg. Pericardium/ Pleura There is no pericardial effusion. There is an anterior echo-free space consistent with a fat pad. There is no pleural effusion. MMode/2D Measurements & Calculations LVIDd: 4.6 cm LVOT diam: 1.8 cm LVIDs: 2.6 cm Ao root diam: 3.5 cm FS: 43.5 % IVSd: 0.80 cm LVPWd: 0.80 cm LV [place]. diameter/BSA (cm/m^2): 2.5 LV sys. diameter/BSA (cm/m^2): 1.4 LA A2 area: 21.2 cm2 RA long axis: 5.6 cm LA A4 area: 20.7 cm2 LA length (vol): 5.8 cm LA vol: 64.8 ml LA vol index: 35.5 ml/m2 RVD1 (basal): 3.8 cm LVLs ap4: 5.3 cm LVLd ap2: 7.2 cm TAPSE_phl: 2.6 cm LVLs ap2: 5.8 cm Doppler Measurements & Calculations Ao V2 max: 280.0 cm/sec LVOT Max Cecil: 125.0 cm/sec Ao V2 mean: 197.0 cm/sec LV V1 max P.3 mmHg Ao max P.4 mmHg LV V1 VTI: 33.6 cm Ao mean P.0 mmHg EN(I,D): 1.3 cm2 Ao V2 VTI: 68.1 cm EN(V,D): 1.1 cm2 sev ratio: 0.49 EN indexed to BSA (cm^2/m^2): 0.69 MV E max cecil: 147.0 cm/sec TR max cecil: 284.0 cm/sec MV A max cecil: 99.8 cm/sec TR max P.3 mmHg MV E/A: 1.5 PA V2 max: 90.4 cm/sec Med Peak E' Cecil: 6.5 cm/sec PA V2 mean: 67.6 cm/sec E/E' med: 22.7 PA mean P.0 mmHg Lat Peak E' Cecil: 7.2 cm/sec PA pr(Accel): 30.0 mmHg E/E' lat: 20.5 E/e' average: 21.6 MV dec time: 0.26 sec SV(LVOT): 85.5 ml AV VR_phl: 0.43 EN(VTI)/BSA_phl: 0.68 MV P1/2t-pr_phl: 77.0 msec Reading Physician:12:27 PM
== END ==
LOC: ECHO 15:35
PROVIDERS: PCP Internal Medicine; Referring Provider Internal Medicine Cardiovascular Disease; Visit Provider Internal Medicine Cardiovascular Disease
DX: I27.20 Pulmonary hypertension, unspecified (principal); I08.1 Rheumatic disorders of both mitral and tricuspid valves; Z95.2 Presence of prosthetic heart valve
CPT/HCPCS: 93306

== ENCOUNTER → 2023-08-31 10:00 | Outpatient (CLI) | payer MEDICARE, SELFPAY ==
--- NOTE | 2023-08-31 | DI.RAD.S_ITS ---
Bone Density Report Name: ANUP PANG Age: 87 Sex: Female Ethnicity: White Date of : 1935 Indication: osteopenia; rheumatoid arthritis; Referring Provider: SHELLEY MCCLAIN Study: Bone densitometry was performed. Exam Date: August 31, 2023 Accession number: [id number] Bone Density: Region BMD T-score Z-score Classification AP Spine(L3, L4) 1.070 -0.3 2.7 Normal Femoral Neck (Left) 0.640 -1.9 0.6 Osteopenia Total Hip (Left) 0.769 -1.4 0.9 Osteopenia Femoral Neck (Right) 0.616 -2.1 0.4 Osteopenia Total Hip (Right) 0.711 -1.9 0.4 Osteopenia Total Hip Mean 0.740 -1.7 0.7 Osteopenia World Health Organization criteria for BMD impression classify patients as: Normal (T-score at or above -1.0), Osteopenia (T-score between -1.0 and -2.5), or Osteoporosis (T-score at or below -2.5). 10-year Fracture Risk(1): Major Osteoporotic Fracture 19% Hip Fracture 6.6% Reported Risk Factors: [place] (), Neck BMD=0.616, BMI=30.8, rheumatoid arthritis (1) FRAX(R) Version 3.08. Fracture probability calculated for an untreated patient. Fracture probability may be lower if the patient has received treatment. Previous Exams: -- Region Exam Age BMD T-score BMD Change BMD Change Date g/cm2 vs Baseline vs Previous -- AP Spine (L3-L4) 08/31/2023 87 1.070 -0.3 0.091 (9.3%)# 0.091 (9.3%)# 05/23/2015 79 0.979 -1.1 Total Hip(Left) 08/31/2023 87 0.769 -1.4 -0.063 (-7.6%)# -0.063 (-7.6%)# 05/23/2015 79 0.832 -0.9 Total Hip(Right) 08/31/2023 87 0.711 -1.9 -0.129 (-15.4%)# -0.129 (-15.4%)# 05/23/2015 79 0.840 -0.8 -- *Denotes significance at 95% confidence level, LSC for AP Spine = 0.022 g/cm2, LSC for Total Hip = 0.027 g/cm2 # Denotes dissimilar scan types or analysis methods Impression: The patient has low bone mass, based on the Right Femoral Neck T-score. The patient has an estimated ten-year risk of hip fracture of 6.6% and an estimated ten-year risk of major fracture of 19%, based on the WHO FRAX algorithm. No significant bone loss was observed. Discussion: BONE DENSITY IS LOW AT ONE OR MORE SKELETAL SITES. THE PATIENT'S BMD AND CLINICAL RISK FACTORS CONTRIBUTE TO THIS PATIENT'S INCREASED RISK OF FRACTURE. This patient's lowest T-score is low at one or more skeletal sites. It meets the World Health Organization's (WHO) criteria for low bone mass (T-score between -1.0 and -2.5). The patient's 10-year risk of hip fracture as calculated by FRAX exceeds the threshold where pharmacological therapy is recommended by the National Osteoporosis Foundation (NOF). However, all treatment decisions require clinical judgment and consideration of individual patient factors, including patient preferences, comorbidities, previous drug use, risk factors not captured in the FRAX model (e.g., frailty, falls, vitamin D deficiency, increased bone turnover, interval significant decline in bone density) and possible under or overestimation of fracture risk by FRAX. The patient should follow a healthful lifestyle (good nutrition with adequate calcium and vitamin D, and appropriate weight-bearing exercise). Follow-Up: Consider a repeat BMD and Vertebral Fracture Assessment (VFA) exam in 2 years or sooner if medically necessary, to reassess this patient's status. Reported by: FABRICE DE LA PAZ M.D. on 08/31/2023 10:46:00 AM.
== END ==
PROVIDERS: PCP Internal Medicine; Referring Provider Internal Medicine; Visit Provider Internal Medicine
DX: M06.9 Rheumatoid arthritis, unspecified (principal); M85.851 Other specified disorders of bone density and structure, right thigh; E03.9 Hypothyroidism, unspecified; Z78.0 Asymptomatic menopausal state; Z90.710 Acquired absence of both cervix and uterus
CPT/HCPCS: 77080

== ENCOUNTER → 2024-04-17 13:04 | Outpatient (CLI) | payer MEDICARE, SELFPAY ==
--- NOTE | 2024-04-17 13:05 | DI.US.S_ITS ---
PROCEDURE: US CAROTID DOPPLER BI INDICATIONS: BILATERAL CAROTID ARTERY STENOSIS TECHNIQUE: Color and pulse Doppler interrogation was performed of both carotid systems, with image documentation and velocity measurements. COMPARISON: None. FINDINGS: Stenosis calculations are based on SRU (Society of Radiologists in Ultrasound) criteria. Right side: Brachial blood pressure: 157/70 mm Hg. Common carotid artery peak systolic velocity: 72 cm/sec. Internal carotid artery peak systolic velocity: 71 cm/sec. Internal carotid artery end diastolic velocity: 18 cm/sec. External carotid artery peak systolic velocity: 74 cm/sec. ICA/CCA peak systolic ratio: 1.0 . Pal scale imaging description: Mild atherosclerotic plaques Percent internal carotid artery stenosis: Less than 50% stenosis . Vertebral artery: Flow direction is antegrade. Left side: Brachial blood pressure: 156/71 mm Hg. Common carotid artery peak systolic velocity: 101 cm/sec. Internal carotid artery peak systolic velocity: 80 cm/sec. Internal carotid artery end diastolic velocity: 21 cm/sec. External carotid artery peak systolic velocity: T1 cm/sec. ICA/CCA peak systolic ratio: 0.8 . Pal scale imaging description: Mild atherosclerotic plaque Percent internal carotid artery stenosis: Less than 50% stenosis. . Vertebral artery: Flow direction is antegrade. IMPRESSION: Less than 50% stenosis of the bilateral internal carotid arteries. Dictated by: Duane Armando M.D. on 04/17/2024 at 17:55 Approved by: Duane Armando M.D. on 04/17/2024 at 17:57
== END ==
PROVIDERS: PCP Internal Medicine; Referring Provider Internal Medicine Cardiovascular Disease; Visit Provider Internal Medicine Cardiovascular Disease
DX: I65.23 Occlusion and stenosis of bilateral carotid arteries (principal)
CPT/HCPCS: 93880

== ENCOUNTER → 2024-12-07 09:26 | Outpatient (CLI) | payer MEDICARE, SELFPAY ==
--- NOTE | 2024-12-07 09:28 | DI.ECHO.S_ITS ---
[facility] : : [address] : : [place] : : [id number] : : Phone: [phone] Echocardiogram Report + + :Name: ANUP PANG Study Date: 12/07/2024 Height: 63 in : :[facility] ReadingLocation: Weight: 186 lb : : Gender: Female BSA: 1.9 m2 : :: 1935 Age: 88 yrs BP: 142/77 mmHg: :Reason For Study: SVT : :Ordering Physician: ROCKY, : :ANNABELLE Huang Performed By: Xochitl Glaser : :Referring: ANNABELLE HIDALGO W : + + Interpretation Summary The left ventricle is normal in size and wall thickness. The right ventricle is mildly dilated. The right ventricular systolic function is normal. There is moderate mitral annular calcification. The mitral valve mean gradient is 3.4 mmHg. There is mild mitral stenosis. There is mild mitral regurgitation. There is a bioprosthetic aortic valve. The prosthetic aortic valve is well-seated. The peak aortic velocity is 2.5 m/sec. The aortic valve mean gradient is 13.7 mmHg. No significant bioprosthetic aortic valve stenosis. There is mild tricuspid regurgitation. The right ventricular systolic pressure is estimated to be at least 36 mmHg based on an estimated right atrial pressure of 8 mm Hg. Procedure: A two-dimensional transthoracic echocardiogram with color flow and Doppler was performed. The study quality was technically good. Comparison is made with the echocardiogram of 02/27/2024. The patient was in sinus rhythm with heart rates between 55-84 bpm during the exam. The patient had occasional PACs during the exam. Left Ventricle: The left ventricle is normal in size and wall thickness. There is no thrombus. The ejection fraction is estimated to be 60-65%. The left ventricular ejection fraction is normal. There are no focal wall motion abnormalities. MV E/A: 1.0 Med Peak E' Cecil: 5.4 cm/sec E/E' med: 23.7. Diastolic parameters suggest probable elevated filling pressures. Right Ventricle: The right ventricle is mildly dilated. The right ventricular systolic function is normal. Atria: The left atrium is moderately dilated. The right atrium is mildly dilated. There is no Doppler evidence for an interatrial shunt. Mitral Valve: There is moderate mitral annular calcification. The mitral valve chordae are thickened and/or calcified. The mitral valve mean gradient is 3.4 mmHg. No significant mitral valve stenosis. There is mild mitral stenosis. There is mild mitral regurgitation. Aortic Valve: There is a bioprosthetic aortic valve. The prosthetic aortic valve is well-seated. The prosthetic aortic valve is not well visualized. The peak aortic velocity is 2.5 m/sec. The aortic valve mean gradient is 13.7 mmHg. No aortic regurgitation is present. Tricuspid Valve: The tricuspid valve is normal. There is mild tricuspid regurgitation. The right ventricular systolic pressure is estimated to be at least 36 mmHg based on an estimated right atrial pressure of 8 mm Hg. Pulmonic Valve: The pulmonic valve is not well seen, but is grossly normal. There is mild pulmonic regurgitation. Great Vessels: The aortic root is normal size. The ascending aorta is normal in size. The pulmonary artery is normal size. The IVC is dilated (diameter is greater than 2.1 cm) yet it collapses greater than 50% with a sniff. This suggests a right atrial pressure of 8 mm Hg. Pericardium/ Pleura There is no pericardial effusion. There is no pleural effusion. MMode/2D Measurements & Calculations LVIDd: 4.7 cm LVOT diam: 1.8 cm LVIDs: 3.1 cm Ao root diam: 3.3 cm FS: 34.1 % asc Aorta Diam: 3.4 cm EPSS: 0.95 cm Ao Arch Diam (Prox Trans): 2.5 cm IVSd: 0.93 cm LVPWd: 0.91 cm LV [place]. diameter/BSA (cm/m^2): 2.5 LV sys. diameter/BSA (cm/m^2): 1.7 LA A2 area: 25.8 cm2 RA long axis: 6.0 cm LA A4 area: 24.5 cm2 RA area: 21.9 cm2 LA length (vol): 6.4 cm RA vol: 68.4 ml LA vol: 84.4 ml RA : 36.5 ml/m2 LA vol index: 45.0 ml/m2 IVC diam: 2.3 cm TAPSE: 3.1 cm Doppler Measurements & Calculations Ao V2 max: 252.8 cm/sec LVOT Max Cecil: 115.9 cm/sec Ao V2 mean: 174.9 cm/sec LV V1 max P.4 mmHg Ao max P.6 mmHg LV V1 VTI: 28.9 cm Ao mean P.7 mmHg EN(I,D): 1.2 cm2 Ao V2 VTI: 60.4 cm EN(V,D): 1.2 cm2 sev ratio: 0.48 EN indexed to BSA (cm^2/m^2): 0.67 MV E max cecil: 128.6 cm/sec TR max cecil: 206.3 cm/sec MV A max cecil: 122.7 cm/sec TR max P.3 mmHg MV E/A: 1.0 PA V2 max: 73.2 cm/sec Med Peak E' Cecil: 5.4 cm/sec PA V2 mean: 48.3 cm/sec E/E' med: 23.7 PA mean P.1 mmHg Lat Peak E' Cecil: 7.0 cm/sec E/E' lat: 18.4 E/e' average: 21.0 MV dec time: 0.30 sec MVA(VTI): 1.4 cm2 MV V2 mean: 82.3 cm/sec SV(LVOT): 75.4 ml MV mean P.4 mmHg MV V2 VTI: 52.6 cm Reading Physician:01:26 PM
== END ==
PROVIDERS: PCP Internal Medicine; Referring Provider Internal Medicine; Visit Provider Nurse Practitioner
DX: I08.1 Rheumatic disorders of both mitral and tricuspid valves (principal); I47.10 Supraventricular tachycardia, unspecified; Z95.2 Presence of prosthetic heart valve
CPT/HCPCS: 93306